=== PATIENT | female | born 1970 | race Caucasian/White ===

== ENCOUNTER 2018-04-20 00:31 | Outpatient (CLI) | payer BC, SELFPAY ==
--- NOTE | 2018-04-20 07:35 | MERGE_ITS ---
*[facility]* *[facility]* [address] [place] [address] Date of study: 04/20/2018 Transthoracic Echocardiography M-mode, complete 2D, complete spectral Doppler, and color Doppler *STUDY CONCLUSIONS* Summary: 1. Left ventricle: The cavity size was normal. Wall thickness was increased in a pattern of mild LVH. There was mild focal basal hypertrophy of the septum. Systolic function was normal. The estimated ejection fraction was 55-60%. Wall motion was normal; there were no regional wall motion abnormalities. 2. Aortic valve: There was mild regurgitation. 3. Mitral valve: There was mild regurgitation. 4. Right ventricle: The cavity size was normal. Wall thickness was normal. Systolic function was normal. *PATIENT PRESENTATION* Height: 170.2cm ((67in) ) S/D Pressure: 147 / 77 Weight: 77.1kg ((169.6lb) ) BSA: 1.92m^2 Test start time: 07:45 AM. Test stop time: 08:40 AM. PERFORMING Unknown ORDERING Aliyah Lopez MD REFERRING Aliyah Lopez MD PERFORMING [facility] TUFTER RT Karl (Ilsa)(BRAD), MALIHA *PROCEDURE DATA* Procedure information: The patient was identified by two identifiers. This study was interpreted by [facility]. Pertinent images and digital data are archived for permanent storage and are available for subsequent review. No prior study was available for comparison. Study status: Routine. Transthoracic echocardiography. M-mode, complete 2D, complete spectral Doppler, and color Doppler. A Transthoracic Echocardiogram was performed. Scanning was performed from the parasternal, apical, subcostal, and suprasternal notch acoustic windows. Images were obtained using an [id number] cardiac ultrasound machine. Image quality was fair. Study completion: The patient tolerated the procedure well. History: PMH: afib paroxysmal. *CARDIAC ANATOMY* Left ventricle: The cavity size was normal. Wall thickness was increased in a pattern of mild LVH. There was mild focal basal hypertrophy of the septum. There was a false tendon within the ventricle. Systolic function was normal. The estimated ejection fraction was 55-60%. Wall motion was normal; there were no regional wall motion abnormalities. Aortic valve: Trileaflet; mildly thickened, mildly calcified leaflets. Mobility was not restricted. Doppler: Transvalvular velocity was within the normal range. There was no stenosis. There was mild regurgitation. VTI ratio of LVOT to aortic valve: 0.73. Valve area (VTI): 2.2cm^2. Indexed valve area (VTI): 1.1cm^2/m^2. Peak velocity ratio of LVOT to aortic valve: 0.75. Valve area (Vmax): 2.3cm^2. Indexed valve area (Vmax): 1.2cm^2/m^2. Mean velocity ratio of LVOT to aortic valve: 0.64. Valve area (Vmean): 1.9cm^2. Indexed valve area (Vmean): 1cm^2/m^2. Mean gradient (S): 5.6mm Hg. Peak gradient (S): 10.9mm Hg. Aorta: Aortic root: The aortic root was normal in size. Ascending aorta: The ascending aorta was normal in size. Aortic arch: The aortic arch was normal in size. Mitral valve: Mildly thickened leaflets. Mobility was not restricted. Doppler: Transvalvular velocity was within the normal range. There was no evidence for stenosis. There was mild regurgitation. Valve area by pressure half-time: 3.9cm^2. Indexed valve area by pressure half-time: 2cm^2/m^2. Peak gradient (D): 4.3mm Hg. Left atrium: The atrium was at the upper limits of normal in size. Right ventricle: The cavity size was normal. Wall thickness was normal. Systolic function was normal. Pulmonic valve: Poorly visualized. Doppler: Transvalvular velocity was within the normal range. There was no evidence for stenosis. There was no significant regurgitation. Peak gradient (S): 3.9mm Hg. Tricuspid valve: Mildly thickened leaflets. Doppler: Transvalvular velocity was within the normal range. There was no evidence for stenosis. There was mild regurgitation. Pulmonary artery: Poorly visualized. Pulmonary systolic pressure was at the upper limits of normal. Right atrium: The atrium was normal in size. Pericardium: There was no pericardial effusion. Systemic veins: Inferior vena cava: Well visualized. The vessel was patent and normal in size. The respirophasic diameter changes were in the normal range (greater than or equal to 50%), consistent with normal central venous pressure. Baseline ECG: Normal sinus rhythm. Measurements Left ventricle Value Reference LV ID, ED, PLAX 4.3 cm 3.5 - 6.0 LV ID, ES, PLAX 3.0 cm 2.1 - 4.0 LV PW thickness, ED, PLAX 1.2 cm LV end-diastolic volume, 1-p A2C 97 ml LV ejection fraction, 1-p A2C 53 % LV end-diastolic volume, 1-p A4C 98 ml LV ejection fraction, 1-p A4C 53 % LV e', lateral 0.094 m/sec LV E/e', lateral 11 LV e', medial 0.069 m/sec LV E/e', medial 15 LV e', average 0.082 m/sec LV E/e', average 13 Ventricular septum Value Reference IVS thickness, ED, PLAX 1.3 cm LVOT Value Reference LVOT ID, A-P 2.0 cm LVOT area 3 cm^2 LVOT peak velocity, S 1.23 m/sec LVOT mean velocity, S 0.71 m/sec LVOT VTI, S 27.7 cm LVOT peak gradient, S 6.1 mm Hg LVOT mean gradient, S 2.6 mm Hg Stroke volume (SV), LVOT DP 84 ml Stroke index (SV/bsa), LVOT DP 43 ml/m^2 Aortic valve Value Reference Aortic valve peak velocity, S 1.7 m/sec Aortic valve mean velocity, S 1.11 m/sec Aortic valve VTI, S 38.1 cm Aortic mean gradient, S 5.6 mm Hg Aortic peak gradient, S 10.9 mm Hg VTI ratio, LVOT/AV 0.73 Aortic valve area, VTI 2.2 cm^2 Velocity ratio, peak, LVOT/AV 0.75 Aortic valve area, peak velocity 2.3 cm^2 Velocity ratio, mean, LVOT/AV 0.64 Aortic valve area, mean velocity 1.9 cm^2 Aortic valve area/bsa, mean velocity 1 cm^2/m^2 Aortic regurg deceleration 325 cm/s^2 Aortic regurg pressure half-time 434 ms Aorta Value Reference Aortic root ID, ED 3.0 cm Ascending aorta ID, A-P, S 3.3 cm Aortic arch ID, innominate-LCCA 2.3 cm 2.0 - 3.6 RVOT Value Reference RVOT VTI, S 20.8 cm Left atrium Value Reference LA ID, A-P, ES 3.6 cm LA ID/bsa, A-P 1.9 cm/m^2 <=2.2 LA area, ES, A4C 18.8 cm^2 8.8 - 23.4 LA area, ES, A2C 17 cm^2 LA volume/bsa, ES, 1-p A4C 32 ml/m^2 LA volume, ES, 2-p 49 ml LA volume/bsa, ES, 2-p 26 ml/m^2 LA/aortic root ratio 1.2 Mitral valve Value Reference Mitral E-wave peak velocity 1.04 m/sec Mitral A-wave peak velocity 0.74 m/sec Mitral deceleration time 195 ms 150 - 230 Mitral pressure half-time 57 ms Mitral peak gradient, D 4.3 mm Hg Mitral E/A ratio, peak 1.41 Mitral valve area, PHT, DP 3.9 cm^2 Pulmonary veins Value Reference Pulmonary vein peak velocity, S 0.49 m/sec Pulmonary vein peak velocity, D 0.42 m/sec Pulmonary vein velocity ratio, peak, 1.15 S/D Pulmonary vein A-wave reversal peak 0.3 m/sec velocity Pulmonary vein A-wave reversal 166 ms duration Pulmonary arteries Value Reference PA pressure, S, DP 29 mm Hg <=30 Tricuspid valve Value Reference Tricuspid regurg peak velocity 2.4 m/sec Tricuspid peak RV-RA gradient 23 mm Hg Right atrium Value Reference RA area, ES, A4C 14.2 cm^2 8.3 - 19.5 Systemic veins Value Reference Estimated CVP 10 mm Hg Right ventricle Value Reference RV pressure, S, DP (H) 33 mm Hg <=30 Pulmonic valve Value Reference Pulmonic peak gradient, S 3.9 mm Hg Legend: (L) and (H) luz values outside specified reference range. I have personally reviewed the images and have reviewed and edited the reported findings. Electronically signed by Tacos Strickland 04/20/2018 17:39
== END 2018-04-20 00:32 ==
PROVIDERS: PCP Family Medicine; Visit Provider Family Medicine
DX: I48.0 Paroxysmal atrial fibrillation (principal); I08.0 Rheumatic disorders of both mitral and aortic valves
CPT/HCPCS: 93306

== ENCOUNTER 2018-06-02 01:13 | Outpatient (CLI) | payer BC, SELFPAY | END 2018-06-02 01:33 | PROVIDERS: PCP Family Medicine; Visit Provider Family Medicine | DX: I48.0 Paroxysmal atrial fibrillation (principal); I47.1 Supraventricular tachycardia; R00.2 Palpitations | CPT/HCPCS: 93225 ==

== ENCOUNTER 2018-06-05 08:21 | Outpatient (CLI) | payer BC, SELFPAY ==
--- NOTE | 2018-06-05 16:39 | W.HOLTRPT ---
Holter Monitor Report Holter Monitor Note: Baseline rhythm is sinus. Rare single PAC. Single burst SVT, 6 beats duration at 127 bpm. Rare single PVC. No VT. No bradycardia. Symptoms: Palpitations on a once during sinus rhythm 76 bpm. Average heart rate 73 bpm. Range 60-121 bpm.
== END 2018-06-05 08:41 ==
PROVIDERS: PCP Family Medicine; Visit Provider Family Medicine
DX: I48.0 Paroxysmal atrial fibrillation (principal); I47.1 Supraventricular tachycardia; R00.2 Palpitations
CPT/HCPCS: 93226

== ENCOUNTER 2018-10-27 14:01 | Outpatient (REF) | payer BC, SELFPAY | END 2018-10-27 14:21 | LOC: LBN 14:01 | PROVIDERS: PCP Family Medicine; Visit Provider Family Medicine | DX: R35.0 Frequency of micturition (principal); R39.9 Unspecified symptoms and signs involving the genitourinary system | CPT/HCPCS: 87086 ==

== ENCOUNTER 2018-11-14 18:48 | Outpatient (REF) | payer BC, SELFPAY ==
[2018-11-14 18:55] LABS: Absolute Basophil Count 0.01 k/cumm (0.0-0.2); Absolute Lymphocyte Count 2.37 k/cumm (1.2-3.4); Absolute Monocyte Count 0.46 k/cumm (0.11-0.7); Basophils % 0.2; Eosinophils % 1.6; HCT 42.7 % (36.0-46.0); HGB 14.5 g/dL (12.0-15.5); Lymphocytes % 36.8; Mean Corpuscular Hemoglobin 30.6 pg (27.0-33.0); Mean Corpuscular Volume 90.1 fL (80-95); Mean Platelet Volume 10.6 fL (8.0-11.0); Monocytes % 7.1; Neutrophils % 54.3; Platelet Count 217 x1000/uL (130-400); RBC 4.74 m/cumm (4.00-5.20); RBC Distribution Width 12.8 % (11.7-14.6); White Blood Cell Count 6.44 k/cumm (4.4-10.8)
[2018-11-14 19:47] LABS: BUN 17 mg/dL (7-18); CREATININE 0.94 mg/dL (0.55-1.02); Calcium 9.6 mg/dL (8.5-10.1); Chloride 101 mmol/L (98-107); Glucose 132 mg/dL (70-100); Potassium 3.9 mmol/L (3.5-5.1); Sodium 139 mmol/L (136-145); TSH (W/Ref FT4) 2.77 uIU/mL (0.358-3.74)
== END 2018-11-14 19:08 ==
LOC: LBN 18:48
PROVIDERS: PCP Family Medicine; Visit Provider Family Medicine
DX: R00.0 Tachycardia, unspecified (principal)
CPT/HCPCS: 80048; 83735; 84443; 85025

== ENCOUNTER 2018-11-28 10:14 | Emergency (ER) | payer BC, SELFPAY ==
[2018-11-28 10:17] VITALS: BP 170/98; PULSE 90; RESP 18; TEMP 36.1; O2SAT 100
[2018-11-28] MEDS: Normal Saline Flush 10 ML SYR IVP (11:00)
[2018-11-28] MEDS: Prochlorperazine 10 MG/2 ML VIAL IVP (11:10)
[2018-11-28] MEDS: Ketorolac 30 MG/ML VIAL IVP (11:15)
[2018-11-28] MEDS: Dexamethasone 10 MG/ML VIAL IVP (11:21)
[2018-11-28] MEDS: diphenhydrAMINE 50 MG/ML VIAL 25 MG IVP (11:23)
--- NOTE | 2018-11-28 11:29 | NUR.NOTE ---
Resting quieter after admin of ordered migraine meds, less restless. Headache now 5, nausea 3. Nursing Note:
--- NOTE | 2018-11-28 12:08 | W.ED.GENAD ---
Discharge Plan Disposition Patient Disposition: HOME Condition: Improving Discharge Details Chief Complaint: Headache Clinical Impression: Migraine Primary Care Provider: John Sandhu ED Provider: Leanne Huddleston Home Meds and New Rx's Prescriptions: Continued spironolactone 50 mg tablet 50 mg PO DAILY RF: 0 rizatriptan [Maxalt] 10 MG tablet 10 mg PO ONCE RF: 0 sumatriptan succinate [Imitrex STATdose Pen] 6 MG/0.5 ML pen injector 6 mg SQ ONCE PRNRF: 0 valacyclovir [Valtrex] 500 MG tablet 1,000 mg PO BID RF: 0 acetaminophen 500 MG/5 ML liquid 1,000 mg PO QID RF: 0 ibuprofen 800 mg Tablet 800 mg PO PRNRF: 0 Discharge Instructions Instructions: Migraine Headache (ED) Additional Instructions: Drink plenty of fluids and get plenty of rest. Take the Compazine as needed and directed for any nausea or vomiting. Take your migraine medication that you have at home as needed and directed for any migraines. Follow-up with your neurologist and primary care doctor for reevaluation. Return immediately to the emergency department with any worsening or concerning symptoms. Discharge Data Discharge Physician: Leanne Huddleston Medical Decision Making 1030 -- 48-year-old female with history of anxiety, panic attacks and migraine who presents with migraine since 5 AM. Denies fever, neck pain. She admits to phonophobia and photophobia. Blood pressure mildly hypertensive. Vitals within normal limits. Patient appears uncomfortable. Normal ENT exam. No focal deficits. Will place an IV, bolus IV fluids, Compazine, Benadryl, Toradol and Decadron and will reassess. As her symptoms feel consistent with her usual migraine and she has no focal deficits, no meningeal signs, I do not see an indication for labs or imaging at this time. 1220 --patient feels much better and is requesting to go home. Patient appears much more comfortable. She is ambulatory around the ED. She states she has a neurologist. She states she has plenty of her migraine medication at home. Will send home with 2 tabs of Compazine. She is instructed to drink plenty of fluids and get plenty of rest, follow up with her neurologist and primary care doctor return here at any time if worse. HPI General Mode of arrival: ambulatory. Date/Time Provider Initiated Documentation: 11/28/18 10:34. Limitations to Documentation: no limitations. Information obtained by: patient. HPI Narrative: Patient is a 48-year-old female with a history of anxiety, panic attacks, and migraines who presents for migraines since 5 and this morning. She states the headache started gradually after she awoke, is frontal, and on the left roman catholic side of her head. She states the headache is throbbing in nature. She states it feels consistent with previous migraines. She admits to photophobia, phonophobia, nausea and vomiting. She took 2 doses of Maxalt but vomited after each tab. She denies any fever. She denies any recent illness. She states she drank wine and ate chili last night. She denies any extremity weakness or numbness. Related Data Home Medications Medication Instructions Recorded Confirmed acetaminophen 1,000 mg PO QID ml 11/30/16 11/28/18 rizatriptan [Maxalt] 10 mg PO ONCE tab-cap 11/30/16 11/28/18 sumatriptan succinate [Imitrex 6 mg SQ ONCE PRN ml 11/30/16 11/28/18 STATdose Pen] valacyclovir [Valtrex] 1,000 mg PO BID tab-cap 11/30/16 11/28/18 spironolactone 50 mg tablet 50 mg PO DAILY 09/07/18 11/28/18 ibuprofen 800 mg PO PRN 11/28/18 Allergies Allergy/AdvReac Type Severity Reaction Status Date / Time Sulfa (Sulfonamide Allergy Severe THROAT Verified 11/28/18 10:34 Antibiotics) CLOSES OFF General Stated Complaint: Headache CRISTOPHER: 3 Review of Systems Review of Systems All systems reviewed & are unremarkable except as noted in HPI and below Constitutional Reports as per HPI, Denies chills, Denies fever(s) and Reports headache(s) Eyes Denies blurry vision ENT Denies dizziness, Reports headache(s), Denies sore throat and Denies throat swelling Cardiovascular Denies chest pain and Denies dyspnea Respiratory Denies cough and Denies dyspnea Gastrointestinal Denies abdominal pain, Denies diarrhea, Reports nausea and Reports vomiting Genitourinary Denies hematuria and Denies dysuria Musculoskeletal Denies back pain and Denies numbness Integumentary/Breasts Denies lesions and Denies rash Neurologic Denies dizziness, Reports headache(s), Denies focal weakness and Denies numbness Allergic/Immunologic Denies throat swelling [facility] Medical History Anxiety (Chronic) Panic disorder (Chronic) Dysuria (Chronic) Sciatica (Chronic) Chronic constipation (Chronic) Essential hypertension (Chronic) Migraine without aura (Chronic) Breast calcifications on mammogram (Acute) Cervico-occipital neuralgia (Acute) Cyst of ovary (Acute) Cystitis (Acute) Depersonalization-derealization syndrome (Acute) Disorder of shoulder (Acute) Flushing (Acute) Onychomycosis (Acute) S/P tubal ligation (Acute ~09/05/93) Kidney stone (Chronic) Paroxysmal atrial fibrillation (Resolved) Surgical History S/P arthroscopy of left shoulder (Acute ~2012) S/P arthroscopy of shoulder (Acute) S/P hysterectomy (Acute ~05/21/09) H/O bladder repair surgery (Chronic ~10/20/15) Family History Father Aneurysm Heart disease Mother No problems noted. 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 has ovaries. last period in 2010.) History History 2 Para 2 Hx # Term Pregnancies Multiple births Hx # Pregnancies Ectopic pregnancies AB induced Hx Number of Living Children AB spontaneous Exam Const General: cooperative, healthy appearing and no acute distress HENMT Head: normal to inspection Ears: hearing grossly normal bilaterally and TM's normal bilaterally General nose exam: external nose normal Face and sinus: normal facial exam Mouth: oral mucosae normal Teeth and gingiva: dentition normal Throat: posterior oropharynx normal Eyes General: appearance normal, both eyes and all related structures Pupils: PERRL EOM: EOM intact bilaterally Neck Neck: normal visual inspection and No submandibular swelling Lymphatic: no lymphadenopathy noted Chest Chest: normal inspection of the chest and no tenderness Resp Effort & Inspection: normal respiratory effort and able to speak in complete sentences Auscultation: clear to auscultation bilaterally Cardio Rate: regular rate Rhythm: regular rhythm GI Inspection: normal to inspection Palpation: soft, not firm, not rigid and nontender Auscultation: normal bowel sounds Skin General skin exam: no rashes or lesions noted Neuro General: alert, awake and oriented x3 Cranial Nerves: CN's II-XI intact bilaterally Cognition: normal cognition Speech: speech normal Motor: muscle tone normal throughout and strength 5/5 throughout Sensory Exam: no sensory deficits noted Extrem General: normal to inspection, full ROM, normal capillary refill and no edema Psych Appearance: grossly normal Mental Status: mental status grossly normal Speech and Movement: speech and movement normal Affect: normal affect Course Vital Signs Temperature 97.0 F L 11/28/18 10:17 Pulse 90 11/28/18 10:17 Respiratory Rate 18 11/28/18 10:17 Blood Pressure 170/98 H 11/28/18 10:17 Pulse Oximetry 100 11/28/18 10:17 Temperature 97.0 F L 11/28/18 10:17 Temperature Source Temporal Artery Scan 11/28/18 10:17 Pulse 90 11/28/18 10:17 Respiratory Rate 18 11/28/18 10:17 Respiratory Effort Non-Labored 11/28/18 10:19 Blood Pressure 170/98 H 11/28/18 10:17 Blood Pressure Position Sitting 11/28/18 10:17 Pulse Oximetry 100 11/28/18 10:17 Oxygen Delivery Method Room Air 11/28/18 10:17 Oxygen Flow Rate 0 11/28/18 10:17 Pain Level 10 11/28/18 11:23
--- NOTE | 2018-11-28 12:12 | ED.GENADUL_ITS ---
Discharge Plan Disposition Patient Disposition: HOME Condition: Improving Discharge Details Chief Complaint: Headache Clinical Impression: Migraine Primary Care Provider: John Sandhu ED Provider: Leanne Huddleston Home Meds and New Rx's Prescriptions: Continued spironolactone 50 mg tablet 50 mg PO DAILY RF: 0 rizatriptan [Maxalt] 10 MG tablet 10 mg PO ONCE RF: 0 sumatriptan succinate [Imitrex STATdose Pen] 6 MG/0.5 ML pen injector 6 mg SQ ONCE PRNRF: 0 valacyclovir [Valtrex] 500 MG tablet 1,000 mg PO BID RF: 0 acetaminophen 500 MG/5 ML liquid 1,000 mg PO QID RF: 0 ibuprofen 800 mg Tablet 800 mg PO PRNRF: 0 Discharge Instructions Instructions: Migraine Headache (ED) Additional Instructions: Drink plenty of fluids and get plenty of rest. Take the Compazine as needed and directed for any nausea or vomiting. Take your migraine medication that you have at home as needed and directed for any migraines. Follow-up with your neurologist and primary care doctor for reevaluation. Return immediately to the emergency department with any worsening or concerning symptoms. Discharge Data Discharge Physician: Leanne Huddleston Medical Decision Making 1030 -- 48-year-old female with history of anxiety, panic attacks and migraine who presents with migraine since 5 AM. Denies fever, neck pain. She admits to phonophobia and photophobia. Blood pressure mildly hypertensive. Vitals within normal limits. Patient appears uncomfortable. Normal ENT exam. No focal deficits. Will place an IV, bolus IV fluids, Compazine, Benadryl, Toradol and Decadron and will reassess. As her symptoms feel consistent with her usual migraine and she has no focal deficits, no meningeal signs, I do not see an indication for labs or imaging at this time. 1220 --patient feels much better and is requesting to go home. Patient appears much more comfortable. She is ambulatory around the ED. She states she has a neurologist. She states she has plenty of her migraine medication at home. Will send home with 2 tabs of Compazine. She is instructed to drink plenty of fluids and get plenty of rest, follow up with her neurologist and primary care doctor return here at any time if worse. HPI General Mode of arrival: ambulatory . Date/Time Provider Initiated Documentation: 11/28/18 10:34 . Limitations to Documentation: no limitations . Information obtained by: patient . HPI Narrative: Patient is a 48-year-old female with a history of anxiety, panic attacks, and migraines who presents for migraines since 5 and this morning. She states the headache started gradually after she awoke, is frontal, and on the left bahai side of her head. She states the headache is throbbing in nature. She states it feels consistent with previous migraines. She admits to photophobia, phonophobia, nausea and vomiting. She took 2 doses of Maxalt but vomited after each tab. She denies any fever. She denies any recent illness. She states she drank wine and ate chili last night. She denies any extremity weakness or numbness. Related Data Home Medications Medication Instructions Recorded Confirmed acetaminophen 1,000 mg PO QID ml 11/30/16 11/28/18 rizatriptan [Maxalt] 10 mg PO ONCE tab-cap 11/30/16 11/28/18 sumatriptan succinate [Imitrex 6 mg SQ ONCE PRN ml 11/30/16 11/28/18 STATdose Pen] valacyclovir [Valtrex] 1,000 mg PO BID tab-cap 11/30/16 11/28/18 spironolactone 50 mg tablet 50 mg PO DAILY 09/07/18 11/28/18 ibuprofen 800 mg PO PRN 11/28/18 Allergies Allergy/AdvReac Type Severity Reaction Status Date / Time Sulfa (Sulfonamide Allergy Severe THROAT Verified 11/28/18 10:34 Antibiotics) CLOSES OFF General Stated Complaint: Headache CRISTOPHER: 3 Review of Systems Review of Systems All systems reviewed & are unremarkable except as noted in HPI and below Constitutional Reports as per HPI, Denies chills, Denies fever(s) and Reports headache(s) Eyes Denies blurry vision ENT Denies dizziness, Reports headache(s), Denies sore throat and Denies throat swelling Cardiovascular Denies chest pain and Denies dyspnea Respiratory Denies cough and Denies dyspnea Gastrointestinal Denies abdominal pain, Denies diarrhea, Reports nausea and Reports vomiting Genitourinary Denies hematuria and Denies dysuria Musculoskeletal Denies back pain and Denies numbness Integumentary/Breasts Denies lesions and Denies rash Neurologic Denies dizziness, Reports headache(s), Denies focal weakness and Denies numbness Allergic/Immunologic Denies throat swelling [facility] Medical History Anxiety (Chronic) Panic disorder (Chronic) Dysuria (Chronic) Sciatica (Chronic) Chronic constipation (Chronic) Essential hypertension (Chronic) Migraine without aura (Chronic) Breast calcifications on mammogram (Acute) Cervico-occipital neuralgia (Acute) Cyst of ovary (Acute) Cystitis (Acute) Depersonalization-derealization syndrome (Acute) Disorder of shoulder (Acute) Flushing (Acute) Onychomycosis (Acute) S/P tubal ligation (Acute ~09/05/93) Kidney stone (Chronic) Paroxysmal atrial fibrillation (Resolved) Surgical History S/P arthroscopy of left shoulder (Acute ~2012) S/P arthroscopy of shoulder (Acute) S/P hysterectomy (Acute ~05/21/09) H/O bladder repair surgery (Chronic ~10/20/15) Family History Father Aneurysm Heart disease Mother No problems noted. 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 has ovaries. last period in 2010.) History History 2 Para 2 Hx # Term Pregnancies Multiple births Hx # Pregnancies Ectopic pregnancies AB induced Hx Number of Living Children AB spontaneous Exam Const General: cooperative, healthy appearing and no acute distress HENMT Head: normal to inspection Ears: hearing grossly normal bilaterally and TM's normal bilaterally General nose exam: external nose normal Face and sinus: normal facial exam Mouth: oral mucosae normal Teeth and gingiva: dentition normal Throat: posterior oropharynx normal Eyes General: appearance normal, both eyes and all related structures Pupils: PERRL EOM: EOM intact bilaterally Neck Neck: normal visual inspection and No submandibular swelling Lymphatic: no lymphadenopathy noted Chest Chest: normal inspection of the chest and no tenderness Resp Effort & Inspection: normal respiratory effort and able to speak in complete sentences Auscultation: clear to auscultation bilaterally Cardio Rate: regular rate Rhythm: regular rhythm GI Inspection: normal to inspection Palpation: soft, not firm, not rigid and nontender Auscultation: normal bowel sounds Skin General skin exam: no rashes or lesions noted Neuro General: alert, awake and oriented x3 Cranial Nerves: CN's II-XI intact bilaterally Cognition: normal cognition Speech: speech normal Motor: muscle tone normal throughout and strength 5/5 throughout Sensory Exam: no sensory deficits noted Extrem General: normal to inspection, full ROM, normal capillary refill and no edema Psych Appearance: grossly normal Mental Status: mental status grossly normal Speech and Movement: speech and movement normal Affect: normal affect Course Vital Signs Temperature 97.0 F L 11/28/18 10:17 Pulse 90 11/28/18 10:17 Respiratory Rate 18 11/28/18 10:17 Blood Pressure 170/98 H 11/28/18 10:17 Pulse Oximetry 100 11/28/18 10:17 Temperature 97.0 F L 11/28/18 10:17 Temperature Source Temporal Artery Scan 11/28/18 10:17 Pulse 90 11/28/18 10:17 Respiratory Rate 18 11/28/18 10:17 Respiratory Effort Non-Labored 11/28/18 10:19 Blood Pressure 170/98 H 11/28/18 10:17 Blood Pressure Position Sitting 11/28/18 10:17 Pulse Oximetry 100 11/28/18 10:17 Oxygen Delivery Method Room Air 11/28/18 10:17 Oxygen Flow Rate 0 11/28/18 10:17 Pain Level 10 11/28/18 11:23
[2018-11-28 12:19] VITALS: BP 161/86; PULSE 84; RESP 15; TEMP 36.6; O2SAT 98
[2018-11-28 13:15] VITALS: BP 170/98; PULSE 90; RESP 15; TEMP 36.6; O2SAT 98
== END 2018-11-28 12:50 | disposition home or self-care (01) ==
PROVIDERS: Emergency Provider Physician Assistant; PCP Family Medicine
DX: G43.909 Migraine, unspecified, not intractable, without status migrainosus (principal); F41.9 Anxiety disorder, unspecified
CPT/HCPCS: 96374; 96375; 99284; J0780; J1100; J1200; J1885

== ENCOUNTER 2018-12-18 11:42 | Outpatient (CLI) | payer BC, SELFPAY ==
--- NOTE | 2018-12-18 10:05 | DI.RAD_ITS ---
SYMPTOM/DIAGNOSIS: CHRONIC NECK PAIN WITH REDUCED ROM, M54.2 CERVICAL SPINE: 12/18/18 Six views were obtained. There is fairly good preservation of the intervertebral disc spaces of the cervical spine. Prominent hypertrophic spurring of the vertebral end plates is noted at C5-6 and C6-7. Mild to moderate facet hypertrophic degenerative changes are noted at multiple levels. Neural foramina are not ideally evaluated on the oblique views and I could not exclude neural foraminal encroachment. No evidence of fracture. CONCLUSION: Moderate to severe degenerative changes of the cervical spine as described above. If there is high clinical suspicion of neural impingement additional evaluation with MRI could be considered.
== END 2018-12-18 12:02 ==
PROVIDERS: PCP Family Medicine; Visit Provider Family Medicine
DX: M54.2 Cervicalgia (principal); M53.83 Other specified dorsopathies, cervicothoracic region; M47.812 Spondylosis without myelopathy or radiculopathy, cervical region
CPT/HCPCS: 72050

== ENCOUNTER 2019-01-17 02:13 | Outpatient (CLI) | payer BC, SELFPAY | END 2019-01-17 02:33 | PROVIDERS: PCP Family Medicine; Visit Provider Family Medicine | DX: R00.0 Tachycardia, unspecified (principal); I49.1 Atrial premature depolarization | CPT/HCPCS: 93225 ==

== ENCOUNTER 2019-01-22 11:59 | Outpatient (CLI) | payer BC, SELFPAY ==
--- NOTE | 2019-01-23 10:29 | HOLTER_ITS ---
DATE OF DICTATION: January 22, 2019 48-HOUR STUDY Baseline rhythm sinus. Occasional single PAC. No SVT or atrial fibrillation.
== END 2019-01-22 12:19 ==
PROVIDERS: PCP Family Medicine; Visit Provider Family Medicine
DX: R00.0 Tachycardia, unspecified (principal); I49.1 Atrial premature depolarization
CPT/HCPCS: 93226

== ENCOUNTER 2019-06-11 13:13 | Outpatient (REF) | payer BC, SELFPAY ==
--- NOTE | 2019-06-11 11:30 | PAPFT_PTH ---
PATIENT: Christelle Nunez LOC: [facility] U#:[id number] AGE/SX: 48/F ROOM: RE06/11/[address]: SEGUNDO Newell : 1970 BED: DIS: 06/11/2019 SPEC #: [id number] RECD: 06/11/19 17:49 STATUS: ALEXANDRU REQ #: [id number] GAYATRI: 06/11/19 11:[address]: Olivia Lindquist DEPT: [facility] Cytology RECD BY: Shea Travis ENTERED: 06/11/19 17:49 SP TYPE: PAPFT OTHR DR: John Sandhu DO Tissues: 1 - CX/ENDOCX FOR PAP SMEARS Procedures: PAP THIN PREP/UVM Screening Comments: [id number]
== END 2019-06-11 13:33 ==
LOC: LBN 13:13
PROVIDERS: PCP Family Medicine; Visit Provider Nurse Practitioner Family
DX: Z12.4 Encounter for screening for malignant neoplasm of cervix (principal)
CPT/HCPCS: 88142

== ENCOUNTER 2019-07-06 06:11 | Day surgery (SDC) | payer BC, SELFPAY ==
[2019-07-06 06:25] VITALS: BP 151/96; PULSE 84; RESP 18; TEMP 36.5; O2SAT 97
[2019-07-06] MEDS: Lactated Ringers 1,000 ML 80 ML IV (06:45)
[2019-07-06] MEDS: ceFAZolin 1 GM/50 ML BAG IVPB (07:35)
[2019-07-06] MEDS: Lidocaine 1% Pres-Free 5 ML VIAL (07:40)
[2019-07-06] MEDS: Bupivacaine 0.5% Pres-Free 30 ML VIAL (07:40)
[2019-07-06] MEDS: Dexamethasone 4 MG/ML VIAL (08:11)
--- NOTE | 2019-07-06 08:31 | W.PM.DSUDISC ---
Discharge Plan Disposition Patient Disposition: HOME Condition: Good Discharge Details Reason For Visit: correction painful right bunion Attending Provider: Meño Robert Primary Care Provider: John Sandhu Home Meds and New Rx's Prescriptions: No Action topiramate [Topamax] 50 mg tablet See Rx Instructions PO BID Qty: 90 RF: 2 sumatriptan succinate [Imitrex STATdose Pen] 6 mg/0.5 mL pen injector 6 mg subcut ONCE PRN (Reason: migraine headache) Qty: 1 RF: 6 rizatriptan [Maxalt] 10 mg tablet 10 mg PO ONCE Qty: 15 RF: 3 spironolactone 50 mg tablet 50 mg PO DAILY Qty: 90 RF: 3 ibuprofen 800 mg tablet 800 mg PO TID PRN (Reason: neck pain) Qty: 90 RF: 1 prochlorperazine maleate 5 mg tablet 5 mg PO Q8H PRN (Reason: nausea with refractory migraine) Qty: 10 RF: 6 valacyclovir [Valtrex] 500 mg tablet 1,000 mg PO BID PRNRF: 0 Discharge Instructions Remove Dressings/Wound Care:: Do Not Remove Shower/Bathe:: Cover Diet:: As Tolerated Discharge Orders Discharge Orders: Discharge Order (Routine); Ordered 07/06/19 Ordered By: Meño Robert DS: Diagnosis Discharge Diagnosis (1) Hallux rigidus of right foot: Status: Acute
[2019-07-06 09:05] VITALS: BP 139/87; PULSE 73; RESP 16; TEMP 36.6; O2SAT 99
[2019-07-06] MEDS: Ibuprofen 600 MG TAB PO (09:13)
--- NOTE | 2019-07-06 09:48 | ROE_ITS ---
DATE OF PROCEDURE: July 06, 2019 PREOPERATIVE DIAGNOSIS: Hallux rigidus deformity right foot with chronic pain. POSTOPERATIVE DIAGNOSIS: Same. PROCEDURE: Cheilectomy; bunionectomy right first MPJ. SURGEON: Meño Robert D.P.M. 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 She is being brought to the OR for surgical interven tion to reduce pain and improve function. Risks and complications have been discussed, including the potential for pain, scarring, infection, stiffness of the joint. She understands that revisional p rocedures may be required in the future. All questions have been answered. No promises made to the final outcome of surgery. REPORT OF OPERATION: Christelle was brought to the operative suite, placed in the supine position where the right foot was prepped and draped in the usual sterile podiatric fashion. Anesthesia being obtai taz utilizing 10 cc's of a 50:50 mixture of 1% Lidocaine plain, 0.5% Marcaine plain. The right foot was exsanguinated and a well-padded ankle tourniquet inflated 250 mmHg. Attention was directed to the right first MPJ where a 5 cm incision was made medial to the EHL tendon . The incision was deepened in controlled depth fashion; hemostasis acquired with electrocautery. D issection was carried down to the joint capsule. The joint capsule was incised midline dorsal. The capsule was reflected medially and laterally and extensive degenerative arthritic changes were apprec iated. Full-thickness erosion was noted, affecting the dorsal third of the first metatarsal head. P artial-thickness erosions were seen on the base of the proximal phalanx at its dorsal component, wher e large exostoses were also seen. With power instrumentation the medial, lateral and dorsal exostosi s from the first metatarsal head was resected. With a rongeur the dorsal aspect of the base of the p roximal phalanx was cleaned up. At this time it appears that she has reasonably good cartilage affec ting the lower portion of the first metatarsal head and base of the proximal phalanx, and I believe w ith a modified Avery procedure she would have adequate range of motion and marked relief of pain wi th this procedure. Based on her age I would prefer not to do a joint resection arthroplasty at this time and we have discussed this preoperatively. The wound was copiously irrigated with normal saline . The joint capsule was hypertrophic and was debrided of some synovitis. The capsule was subsequent ly repaired with simple interrupted suture #3-0 Vicryl. The subcutaneous layer was repaired with sim ple interrupted suture #4-0 Vicryl. A running subcuticular stitch of #4-0 Monocryl was used to bring the skin edges together, followed by Mastisol, half-inch Steri-Strips. Four milligrams of dexametha sone phosphate was infused deeply into the wound. Xeroform, gauze fluff compression dressings were a pplied. Ms. Nunez left the OR with vital signs stable, vascular status intact. Sponge and sharp co unts were correct. She will be followed by me in the office next week. cc: John Sandhu D.O.
== END 2019-07-06 09:40 | disposition home or self-care (01) ==
PROVIDERS: PCP Family Medicine; Visit Provider Podiatrist
PROC: (CPT 28289; principal; 2019-07-06 07:30)
DX: M20.21 Hallux rigidus, right foot (principal); M21.611 Bunion of right foot; G89.29 Other chronic pain; M19.071 Primary osteoarthritis, right ankle and foot; I10 Essential (primary) hypertension
CPT/HCPCS: 28289; J0690; J1100; J1885; J2405

== ENCOUNTER 2019-07-25 10:56 | Outpatient (CLI) | payer BC, SELFPAY ==
[2019-07-25 12:13] LABS: PTT Activated 23.4 sec (21.0-31.4); Prothrombin Time 10.2 sec (9.3-11.0)
[2019-07-25 12:38] LABS: HCT 41.2 % (36.0-46.0); HGB 14.4 g/dL (12.0-15.5); Mean Corpuscular Hemoglobin 30.9 pg (27.0-33.0); Mean Corpuscular Volume 88.4 fL (80-95); Mean Platelet Volume 9.9 fL (8.0-11.0); Platelet Count 226 x1000/uL (130-400); RBC 4.66 m/cumm (4.00-5.20); RBC Distribution Width 12.5 % (11.7-14.6); White Blood Cell Count 6.32 k/cumm (4.4-10.8)
== END 2019-07-25 11:16 ==
PROVIDERS: PCP Family Medicine; Visit Provider Colon & Rectal Surgery
DX: D66 Hereditary factor VIII deficiency (principal); Z98.890 Other specified postprocedural states; Z01.818 Encounter for other preprocedural examination
CPT/HCPCS: 36415; 85027; 85610; 85730

== ENCOUNTER 2019-08-24 02:14 | Outpatient (CLI) | payer BC, SELFPAY ==
--- NOTE | 2019-08-24 13:09 | DI.MAMMO_ITS ---
EXAM: MG MAMMO SCREENING CLINICAL HISTORY: screening TECHNIQUE: Bilateral full field digital CC and MLO mammographic images were obtained with 3D tomosyn thesis and utilizing computer aided detection (CAD). COMPARISON: Available for comparison. FINDINGS: Masses/Architectural Distortion: None seen. Microcalcifications: No suspicious pleomorphic-type are seen. Skin Thickening/Nipple Retraction: None. IMPRESSION: 1. No significant interval change with no specific features of malignancy noted. 2. Unless there is more urgent need, screening mammography is recommended, as per [employer] guidelines. ACR BI-RAD Category- 1 Negative Breast Density - Category C - Heterogeneously dense The mammogram demonstrates the patient's breast tissue is dense. Dense breast tissue is very common a nd is not abnormal but dense breast tissue can make it harder to find cancer on a mammogram. Also, de nse breast tissue may increase their breast cancer risk. This information about the result of the [facility] mogram report was provided to the patient to raise their awareness. Use this report when you speak wi th the patient about their risks for breast cancer, which includes their family history. At that time , you may recommend for more screening tests (Ultrasound or MRI) as they might be useful based on the ir risk. A negative radiographic report should not delay biopsy if a dominant or clinically suspicious mass is present. Up to ten percent of cancers are not identified on mammography. A negative report may reinforce clinical impression. Adenosis and dense breasts may obscure an underlying neoplasm. False positive reports average 6 to 10%. Patient will receive a letter notifying them of these results.
== END 2019-08-24 02:34 ==
PROVIDERS: PCP Family Medicine; Visit Provider Nurse Practitioner Family
DX: Z12.31 Encounter for screening mammogram for malignant neoplasm of breast (principal)
CPT/HCPCS: 77063; 77067

== ENCOUNTER 2020-02-12 18:52 | Emergency (ER) | payer BC, SELFPAY ==
[2020-02-12 18:58] VITALS: BP 212/101; PULSE 88; RESP 17; TEMP 36.6; O2SAT 100
--- NOTE | 2020-02-12 19:07 | ED.GENADUL_ITS ---
Discharge Plan Disposition Patient Disposition: HOME Condition: Improving Discharge Details Chief Complaint: Allergic Clinical Impression: Lip edema Primary Care Provider: John Sandhu ED Provider: Carlos Domingo Home Meds and New Rx's Prescriptions: New prednisone 20 mg tablet 40 mg PO DAILY 3 Days Qty: 6 RF: 0 Continued sumatriptan succinate [Imitrex STATdose Pen] 6 mg/0.5 mL pen injector 6 mg subcut ONCE PRN (Reason: migraine headache) Qty: 1 RF: 6 rizatriptan [Maxalt] 10 mg tablet 10 mg PO ONCE Qty: 15 RF: 3 valacyclovir [Valtrex] 500 mg tablet 1,000 mg PO BID PRNRF: 0 Discharge Instructions Additional Instructions: Please take prednisone as prescribed for 3 days time. Maintain high level of surveillance for potential food allergies such as with the potato chips you ate earlier in the day. Please have your blood pressure rechecked once per day or every other day at the same time. Please record the levels and discussed them with Dr Sandhu at your next appointment. Return if you develop worsening swelling, shortness of breath, rash, difficulty swallowing, or any other acute concerns. Medical Decision Making <Da Alvarado MD - Last Filed: 02/12/20 19:42> Pleasant 49-year-old female presents with abrupt onset of left lower lip swelling while eating flavored potato chips that she had not had before. She took cetirizine and drove herself to the hospital, admitting she was anxious throughout her drive. She is not had difficulty with swallowing, no change to voice, no difficulty breathing and no rash. She arrives mildly anxious and hypertensive but in no significant distress. She does have angioedema of the left lower lip. IV placed, patient given 25 mg Benadryl, Solu-Medrol, famotidine. She has some gradual improvement of the left lower lip swelling. I will place her on an additional 3 days of low-dose prednisone to prevent recrudescence of symptoms. She understands to avoid the potential food allergen that she was exposed to this evening. She will have her blood pressure rechecked in the outpatient setting. <Carlos Domingo MD - Last Filed: 02/12/20 20:13> pt feels better and states lip feels smaller, has mild swelling of lower lip, no uvula swelling, dyspnea, tongue swelling, or gi symptoms. Will d/c on prednisone and advised to f/u with pcp for repeat BP and also possible [employer] referral HPI <Da Alvarado MD - Last Filed: 02/12/20 19:42> General Mode of arrival: ambulatory . Date/Time Provider Initiated Documentation: 02/12/20 18:53 . Limitations to Documentation: no limitations . Information obtained by: patient . History of Present Illness 49 year old F presents to the emergency department with the chief complaint of 49-year-old female with left side lower lip swelling, described as moderate, Quality is described as dull and constant, and is localized to the mouth and left. Patient reports no radiation. Patient started experiencing this hour(s) and it has been constant. No relieving factors improve symptom(s), No exacerbating factors reported . Patient notes denies cough, nausea/vomiting, rash and shortness of breath. Patient did receive the following treatments prior to arrival, other (Cetirizine) Related Data Home Medications Medication Instructions Recorded Confirmed rizatriptan 10 mg tablet 10 mg PO ONCE #15 tab-cap 06/29/19 02/12/20 sumatriptan succinate 6 mg/0.5 mL 6 mg SUBCUT ONCE PRN #1 ml 06/29/19 02/12/20 subcutaneous pen injector valacyclovir [Valtrex] 1,000 mg PO BID PRN 07/04/19 02/12/20 prednisone 40 mg PO DAILY 3 Days #6 tab 02/12/20 Previous Rx's Medication Instructions Recorded rizatriptan 10 mg tablet 10 mg PO ONCE #15 tab-cap 06/29/19 sumatriptan succinate 6 mg/0.5 mL 6 mg SUBCUT ONCE PRN #1 ml 06/29/19 subcutaneous pen injector prednisone 40 mg PO DAILY 3 Days #6 tab 02/12/20 Allergies Allergy/AdvReac Type Severity Reaction Status Date / Time Sulfa (Sulfonamide Allergy Severe THROAT Verified 02/12/20 19:00 Antibiotics) CLOSES OFF General Stated Complaint: Allergic CRISTOPHER: 3 Review of Systems <Da Alvarado MD - Last Filed: 02/12/20 19:42> Narrative: No difficulty breathing, no wheeze, no difficulty swallowing or change to voice. 4 systems reviewed and otherwise negative PFSH <Da Alvarado MD - Last Filed: 02/12/20 19:42> Medical History Anxiety (Chronic) Breast calcifications on mammogram (Acute) Cervico-occipital neuralgia (Acute) Chronic constipation (Chronic) Cyst of ovary (Acute) Cystitis (Acute) Depersonalization-derealization syndrome (Acute) Disorder of shoulder (Acute) Dysuria (Chronic) Essential hypertension (Chronic) Flushing (Acute) Kidney stone (Chronic) Migraine without aura (Chronic) Onychomycosis (Acute) Panic disorder (Chronic) Paroxysmal atrial fibrillation (Resolved) Sciatica (Chronic) Screening for colon cancer (Acute) Family History Father Aneurysm Heart disease Mother No problems noted. 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 Pleasant, well groomed, interactive. HEAD: Normocephalic, atraumatic ENT: Mucous membranes moist, oropharynx unremarkable, uvula midline, left lower lip edematous, external ear exam unremarkable EYES: PERRL, EOMI NECK: Full ROM, no GALINDO, no menigismus CHEST/RESP: Nontender, clear to auscultation bilateral, no wheeze/rhonchi/rales CARDIOVASCULAR: RRR, no murmur, rub chayito. 2+ Rad pulse bilateral EXT: Full ROM, no edema, no rash Neuro: Grossly normal neurologic exam, conversant, interactive. Psych: Speech fluent, thoughts congruent, affect slightly anxious Course <Da Alvarado MD - Last Filed: 02/12/20 19:42> Vital Signs Vital signs: Vital Signs Temperature 36.6 C 02/12/20 18:58 Pulse 88 02/12/20 18:58 Respiratory Rate 17 02/12/20 18:58 Blood Pressure 212/101 H 02/12/20 18:58 Pulse Oximetry 100 02/12/20 18:58 Temperature 36.6 C 02/12/20 18:58 Temperature Source Temporal Artery Scan 02/12/20 18:58 Pulse 88 02/12/20 18:58 Respiratory Rate 17 02/12/20 18:58 Respiratory Effort 02/12/20 19:02 Respiratory Pattern Normal 02/12/20 19:02 Blood Pressure 212/101 H 02/12/20 18:58 Blood Pressure Position Supine 02/12/20 18:58 Pulse Oximetry 100 02/12/20 18:58 Oxygen Delivery Method Room Air 02/12/20 18:58 Oxygen Flow Rate 0 02/12/20 18:58 Pain Level 0 02/12/20 18:58 Sign Out <Da Alvarado MD - Last Filed: 02/12/20 19:42> Sign Out Data: Sign Out Comment: re check angioedem after meds Last updated by Da Alvarado MD at 02/12/20 19:45
[2020-02-12] MEDS: methylPREDNISolone SUCC 125 MG VIAL IVP (19:11)
[2020-02-12] MEDS: FAMOTIDINE 20 MG/50 ML BAG 200 MG IVPB (19:12)
[2020-02-12] MEDS: diphenhydrAMINE 50 MG/ML VIAL 25 MG IVP (19:12)
== END 2020-02-12 20:20 | disposition home or self-care (01) ==
LOC: ER 20:24
PROVIDERS: Emergency Provider Emergency Medicine; PCP Family Medicine
DX: T78.3XXA Angioneurotic edema, initial encounter (principal); T62.91XA Toxic effect of unspecified noxious substance eaten as food, accidental (unintentional), initial encounter; I10 Essential (primary) hypertension
CPT/HCPCS: 96374; 96375; 99284; J1200; J2930

== ENCOUNTER 2020-02-17 03:45 | Observation (INO) | payer BC, SELFPAY ==
[2020-02-17] VITALS (45 sets, daily range): BP systolic 150–252; BP diastolic 75–124; PULSE 65–107; RESP 10–169; TEMP 36.2–37.2; O2SAT 94–100
--- NOTE | 2020-02-17 03:45 | DI.RAD_ITS ---
EXAM: XR PORTABLE CHEST AP CLINICAL HISTORY: htn emergency, eval for mediastinal widening TECHNIQUE: 2D digital imaging was performed. COMPARISON: CR CHEST 2 VIEWS PA,LAT from 03/28/2018 FINDINGS: LUNGS: Clear. No pleural abnormality seen. HEART: Normal. MEDIASTINUM: Normal. OTHER FINDINGS: EKG leads IMPRESSION: No acute pulmonary findings. DATA REPOSITORY: RADIATION DOSE DELIVERED:
--- NOTE | 2020-02-17 03:45 | DI.CT_ITS ---
EXAM: CT BRAIN CTA CLINICAL HISTORY: headache, HTN Emergency, eval for anyurism/stroke. TECHNIQUE: Imaging Protocol: Axial CT angiography was performed with multi-slice acquisition and mu lti-planar and/or 3D reconstructions. CONTRAST MATERIAL: Intravenous: Omnipaque 350 Contrast volume:85 ml COMPARISON: No exams were available for comparison FINDINGS: Noncontrast head CT: No intracranial hemorrhage, mass or infarct is seen. The ventricles are normal in size. There is no evidence of skull fracture. The sinuses and mastoid air cells appear clear whe re visualized. CTA of the BRAIN: Internal Carotid Arteries: Petrous: Normal. Cavernous: Normal. Cerebral: Normal. Middle Cerebral Arteries: Right: No aneurysm, occlusion or significant stenosis. Left: No aneurysm, occlusion or significant stenosis. Anterior Cerebral Arteries: Right: No aneurysm, occlusion or significant stenosis. Left: No aneurysm, occlusion or significant stenosis. Posterial Cerebral Arteries: Right: No aneurysm, occlusion or significant stenosis. Left: No aneurysm, occlusion or significant stenosis. Vertebral Arteries: Right: No aneurysm, occlusion or significant stenosis. Left: No aneurysm, occlusion or significant stenosis. Basilar Artery: No aneurysm, occlusion or significant stenosis. IMPRESSION: Normal CTA examination of the brain. RADIATION DOSE DELIVERED: 953.35mGy.cm Total DLP DATA REPOSITORY: All CT scans at this facility are submitted to the National Radiology Data Registry (NRDR) Dose Index Registry (DIR) with the [employer] (A[employer]). RADIATION OPTIMIZATION: All CT scans at this facility use at least one of these dose optimization te chniques: automated exposure control; mA and/or kV adjustment per patient size (includes targeted exa ms where dose is matched to clinical indication); or iterative reconstruction.
--- NOTE | 2020-02-17 04:05 | ED.GENADUL_ITS ---
Discharge Plan Disposition Patient Disposition: [facility] INPATIENT Condition: Improving Discharge Details Chief Complaint: GenMedical Clinical Impression: Hypertensive emergency, Headache Primary Care Provider: John Sandhu ED Provider: Ollie Perdomo Home Meds and New Rx's Prescriptions: No Action sumatriptan succinate [Imitrex STATdose Pen] 6 mg/0.5 mL pen injector 6 mg subcut ONCE PRN (Reason: migraine headache) Qty: 1 RF: 6 rizatriptan [Maxalt] 10 mg tablet 10 mg PO ONCE Qty: 15 RF: 3 losartan 25 mg tablet 25 mg PO DAILY Qty: 30 RF: 0 valacyclovir [Valtrex] 500 mg tablet 1,000 mg PO BID PRNRF: 0 Medical Decision Making Upon my evaluation, this patient had a high probability of imminent or life- threatening deterioration, which required my direct attention, intervention, and personal management. I have personally provided 45 minutes of critical care time exclusive of time spent on separately billable procedures. Time includes review of laboratory data, radiology results, discussion with consultants, and monitoring for potential decompensation. Interventions were performed as documented. This is a very pleasant 49-year-old female past medical history of recent diagnosis of hypertension on a visit just this last week for an unrelated event. Patient presents this evening for evaluation of headache and hypertensive emergency. Patient states that for the last 2 to 3 months she has noticed a gradual headache, however tonight it became notably severe which she describes as a pounding sensation in the front of her head. 5 days ago when she was diagnosed with hypertension it was recommended that she follow-up closely with her PCP which she does have an appointment in 48 hours unfortunately prior to being able to see her patient's home blood pressure was noted to be elevated and her PCP called in losartan 25 mg. Patient has been taking this as directed, however yesterday she felt that her pressure was high so she doubled up took 50 mg taking 50 mg again this morning prior to arrival with her headache. Aside for the headache she denies any chest pain, numbness, tingling, weakness, fever, chills, neck pain, vomiting, diarrhea. She does have a family history of hypertension, but denies any other significant pertinent family history in regards to this. She denies any other new medication use, IV or illicit drug use, or other complaints. Physical exam demonstrates no focal neurologic deficits. Screening EKG shows no signs of STEMI or significant ischemia. Patient's blood pressure here in the emergency department on triage is notably elevated. Map is 150, systolic >240s, diastolic >120s. Symptoms are certainly concerning for hypertensive emergency. We will evaluate for endorgan damage, start a nicardipine drip for her symptomatic hypertension. We will get a CT scan of the head to rule out aneurysm, portable chest x-ray to rule out mediastinal widening. Patient otherwise remains comfortable currently. Anticipate likely admission. We will start the nicardipine drip at 5 mg/h, and titrate for an initial drop in map by 10 to 20% over the first hour, then gradual increase with a goal of a 25% drop in map during her stay. 4 AM Laboratory results have returned relatively unremarkable, troponin renal function liver function stable. TSH is notably elevated at 9.76, pending free T4. Pending CTA of the head. Also of note patient now notes that she has been taking kratom for her headaches as of late, in addition to that she also is now stating that she does have a family history of brain aneurysms in her father. Patient's blood pressure has notably improved with nicardipine infusion, systolic is now in the 190s, diastolic is in the mid 90s. We will hold the nicardipine at its current rate and continue to monitor closely. Patient's headache does persist though, we will give Ofirmev, Compazine, and Solu-Medrol. 5:[address] scan results have returned, no evidence of aneurysm or bleed or stroke. Patient's headache is notably improved. Blood pressure remains well controlled and is actually starting to go down to the 180 systolic. Not wanting to have a drop greater than 25 to 30% at this time will hold the nicardipine infusion and continue to monitor her pressure closely. Patient remained stable currently now in the ED. I do feel that with her notable hypertensive emergency, in conjunction with the difficulty controlling her pressure at home medications I feel she would benefit from a 4-hour observation/admission to monitor her pressures closely to prevent any rebound headache or hypertension, as well as to get the patient on adequate hypertension medication. Will contact the hospitalist for admission. 6:30 AM I have spoken with the hospitalist Dr. Girard, he agrees with the assessment and plan. Patient remained stable here. Of note she got very anxious and jittery with Compazine, and felt notably restless. 25 mg of IV general Benadryl were given she had notable improvement of her symptomatology in regards to the restlessness with this. I have extensively reviewed the treatment plan with the patient. I have addressed all patient concerns at this time. I have also discussed the plan with the admitting physician and they agree with the current assessment and plan and have agreed to assume responsibility for the patient. All parties demonstrate verbal understanding and agreement with our assessment and plan at this time. EKG 3: 59 Rate 69, sinus rhythm, intervals normal, no significant ST elevations or depressions, slight peaking of T waves in V2 and V3, otherwise unremarkable. FINDINGS: Lungs: Unremarkable. No consolidation. Pleural space: Unremarkable. No pleural effusion. No pneumothorax. Heart/Mediastinum: Unremarkable. No cardiomegaly. Bones/joints: Unremarkable. IMPRESSION: No acute findings. Thank you for allowing us to participate in the care of your patient. Dictated and Authenticated by: Carlos Gonzalez MD FINDINGS: Anterior cerebral arteries: No occlusion or significant stenosis. No aneurysm. Right internal carotid artery: Intracranial segment is patent with no significant stenosis or occlusion. No aneurysm. Right middle cerebral artery: No occlusion or significant stenosis. No aneurysm. Right posterior cerebral artery: No occlusion or significant stenosis. No aneurysm. Right vertebral artery: No occlusion or significant stenosis. No aneurysm. Left internal carotid artery: Intracranial segment is patent with no significant stenosis or occlusion. No aneurysm. Left middle cerebral artery: No occlusion or significant stenosis. No aneurysm. Left posterior cerebral artery: No occlusion or significant stenosis. No aneurysm. Left vertebral artery: No occlusion or significant stenosis. No aneurysm. Basilar artery: No occlusion or significant stenosis. No aneurysm. IMPRESSION: No large vessel stenosis or occlusion. Thank you for allowing us to participate in the care of your patient. Dictated and Authenticated by: Adan Berry MD 02/17/2020 5:20 AM Eastern Time ([place] & [place]) HPI General Date/Time Provider Initiated Documentation: 02/17/20 03:48 . HPI Narrative: This is a very pleasant 49-year-old female past medical history of recent diagnosis of hypertension on a visit just this last week for an unrelated event. Patient presents this evening for evaluation of headache and hypertensive emergency. Patient states that for the last 2 to 3 months she has noticed a gradual headache, however tonight it became notably severe which she describes as a pounding sensation in the front of her head. 5 days ago when she was diagnosed with hypertension it was recommended that she follow-up closely with her PCP which she does have an appointment in 48 hours unfortunately prior to being able to see her patient's home blood pressure was noted to be elevated and her PCP called in losartan 25 mg. Patient has been taking this as directed, however yesterday she felt that her pressure was high so she doubled up took 50 mg taking 50 mg again this morning prior to arrival with her headache. Aside for the headache she denies any chest pain, numbness, tingling, weakness, fever, chills, neck pain, vomiting, diarrhea. She does have a family history of hypertension, but denies any other significant pertinent family history in regards to this. She denies any other new medication use, IV or illicit drug use, or other complaints. Related Data Home Medications Medication Instructions Recorded Confirmed rizatriptan 10 mg tablet 10 mg PO ONCE #15 tab-cap 06/29/19 02/17/20 sumatriptan succinate 6 mg/0.5 mL 6 mg SUBCUT ONCE PRN #1 ml 06/29/19 02/17/20 subcutaneous pen injector valacyclovir [Valtrex] 1,000 mg PO BID PRN 07/04/19 02/17/20 losartan 25 mg tablet 25 mg PO DAILY #30 tab 02/15/20 02/17/20 Previous Rx's Medication Instructions Recorded rizatriptan 10 mg tablet 10 mg PO ONCE #15 tab-cap 06/29/19 sumatriptan succinate 6 mg/0.5 mL 6 mg SUBCUT ONCE PRN #1 ml 06/29/19 subcutaneous pen injector losartan 25 mg tablet 25 mg PO DAILY #30 tab 02/15/20 Allergies Allergy/AdvReac Type Severity Reaction Status Date / Time Sulfa (Sulfonamide Allergy Severe THROAT Verified 02/17/20 04:16 Antibiotics) CLOSES OFF General CRISTOPHER: 3 Review of Systems All systems reviewed & are unremarkable except as noted in HPI and below PFSH Medical History Anxiety (Chronic) Breast calcifications on mammogram (Acute) Cervico-occipital neuralgia (Acute) Chronic constipation (Chronic) Cyst of ovary (Acute) Cystitis (Acute) Depersonalization-derealization syndrome (Acute) Disorder of shoulder (Acute) Dysuria (Chronic) Essential hypertension (Chronic) Flushing (Acute) Kidney stone (Chronic) Migraine without aura (Chronic) Onychomycosis (Acute) Panic disorder (Chronic) Paroxysmal atrial fibrillation (Resolved) Sciatica (Chronic) Screening for colon cancer (Acute) Surgical History H/O bladder repair surgery (Chronic ~10/20/15) Tension Free Vaginal Tape Procedure: ARUNA H/O lithotripsy (Acute) S/P arthroscopy of left shoulder (Acute ~2012) S/P arthroscopy of shoulder (Acute) w/SAD & Ant.Acromioplasty S/P hysterectomy (Acute ~05/21/09) S/P tubal ligation (Acute ~09/05/93) Family History Father Aneurysm Heart disease Mother No problems noted. 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 3.ENT: Atraumatic external nose and ears. Moist MM. Neck: Symmetric, trachea midline, No thyromegaly. 4.CVS: +S1/S2, No murmurs or gallops. Peripheral pulses 2+ and equal in all extremities. Brisk capillary refill in all extremities. 5.RESP: Unlabored respiratory effort. Clear to auscultation bilaterally. No wheezes rales or rhonchi 6.GI: Soft, Nontender/Nondistended, No hepatosplenomegaly. No guarding or rebound. 7.MSK: Normocephalic/Atraumatic, Extremities w/o deformity or ttp No cyanosis or clubbing, Normal movement of all extremities 8.Skin: Warm, Dry. No rashes or lesions. 9.Neuro: family independence case manager II-XII grossly intact. Sensation grossly intact, no focal neurologic deficits. 10.Psych: (AAO) x3. Appropriate mood and affect
[2020-02-17 04:06] LABS: Abs Immature Grans 0.02 k/cumm (0.0-0.09); Absolute Basophil Count 0.03 k/cumm (0.0-0.2); Absolute Eosinophil Count 0.31 k/cumm (0.0-0.7); Absolute Lymphocyte Count 3.84 k/cumm (1.2-3.4); Absolute Monocyte Count 0.64 k/cumm (0.11-0.7); Absolute Neutrophil Count 3.45 k/cumm (1.2-6.7); Basophils % 0.4; Eosinophils % 3.7; HCT 43.4 % (36.0-46.0); HGB 15.1 g/dL (12.0-15.5); Immature Grans % 0.2 %; Lymphocytes % 46.3; Mean Corp. HGB Concentration 34.8 g/dL (32.0-36.0); Mean Corpuscular Hemoglobin 29.8 pg (27.0-33.0); Mean Corpuscular Volume 85.6 fL (80-95); Mean Platelet Volume 9.9 fL (8.0-11.0); Monocytes % 7.7; Neutrophils % 41.7; Platelet Count 271 x1000/uL (130-400); RBC 5.07 m/cumm (4.00-5.20); RBC Distribution Width 13.3 % (11.7-14.6); White Blood Cell Count 8.29 k/cumm (4.4-10.8)
[2020-02-17 04:26] LABS: Prothrombin Time 10.1 sec (9.3-11.0)
[2020-02-17] MEDS: niCARdipine 25 MG in Normal Saline 240 ML 50 MG IV (04:27)
[2020-02-17 04:28] LABS: ALT 32 U/L (14-59); AST 13 U/L (15-37); Albumin 3.9 g/dL (3.4-5.0); Alkaline Phosphatase 69 U/L (46-116); Anion Gap 7.6 mmol/L (3-11); BUN 15 mg/dL (7-18); Bilirubin, Total 0.4 mg/dL (0.2-1.0); CO2 29.4 mmol/L (21.0-32.0); Calcium 8.6 mg/dL (8.5-10.1); Chloride 101 mmol/L (98-107); Estimated GFR 58.69 (mL/min/1.73m2); Glucose 101 mg/dL (74-106); Potassium 3.6 mmol/L (3.5-5.1); Sodium 138 mmol/L (136-145); TSH (W/Ref FT4) 9.76 uIU/mL (0.36-3.74); Total Protein 7.3 g/dL (6.4-8.2); Troponin I < 0.05 ng/mL (<0.06)
--- NOTE | 2020-02-17 04:30 | DI.VRAD_ITS ---
PROCEDURE INFORMATION: Exam: XR Chest, 1 View Exam date and time: 02/17/2020 3:58 AM Age: 49 years old Clinical indication: Screening exam; Other screening; Patient HX: HTN emergency; Please eval for mediastinal widening TECHNIQUE: Imaging protocol: XR of the chest Views: 1 view. COMPARISON: CR CHEST 2 VIEWS PA,LAT 03/28/2018 9:04 AM FINDINGS: Lungs: Unremarkable. No consolidation. Pleural space: Unremarkable. No pleural effusion. No pneumothorax. Heart/Mediastinum: Unremarkable. No cardiomegaly. Bones/joints: Unremarkable. IMPRESSION: No acute findings. Dictated and Authenticated by: Carlos Gonzalez MD. Ordering:APOLONIA Levin MD
[2020-02-17] MEDS: Omnipaque 350 MG/ML 100 ML BTL IJ (04:37)
[2020-02-17 05:00] LABS: FREE T4 1.02 ng/dL (0.76-1.46)
[2020-02-17] MEDS: Normal Saline - Diluent 50 ML VIAL IV (05:09)
--- NOTE | 2020-02-17 05:20 | DI.VRAD_ITS ---
PROCEDURE INFORMATION: Exam: CT Angiography Head With Contrast Exam date and time: 02/17/2020 4:57 AM Age: 49 years old Clinical indication: Pain; Patient HX: Headache, HTN emergency; Additional info: Eval for anyurism/stroke TECHNIQUE: Imaging protocol: Computed tomography angiography of the head with intravenous contrast. 3D rendering: MIP and/or 3D reconstructed images were created by the technologist. COMPARISON: No relevant prior studies available. FINDINGS: Anterior cerebral arteries: No occlusion or significant stenosis. No aneurysm. Right internal carotid artery: Intracranial segment is patent with no significant stenosis or occlusion. No aneurysm. Right middle cerebral artery: No occlusion or significant stenosis. No aneurysm. Right posterior cerebral artery: No occlusion or significant stenosis. No aneurysm. Right vertebral artery: No occlusion or significant stenosis. No aneurysm. Left internal carotid artery: Intracranial segment is patent with no significant stenosis or occlusion. No aneurysm. Left middle cerebral artery: No occlusion or significant stenosis. No aneurysm. Left posterior cerebral artery: No occlusion or significant stenosis. No aneurysm. Left vertebral artery: No occlusion or significant stenosis. No aneurysm. Basilar artery: No occlusion or significant stenosis. No aneurysm. IMPRESSION: No large vessel stenosis or occlusion. Dictated and Authenticated by: Adan Berry MD. Ordering:APOLONIA Levin MD
[2020-02-17] MEDS: Prochlorperazine 10 MG/2 ML VIAL IVP (05:23)
[2020-02-17] MEDS: ACETAMINOPHEN 1,000 MG/100 ML BTL 400 MG IVPB (05:23)
[2020-02-17] MEDS: methylPREDNISolone SUCC 125 MG VIAL IVP (05:23)
--- NOTE | 2020-02-17 05:24 | NUR.NOTE ---
Nursing Note: 0510- Provider made aware pt's MAP had decreased to 115. Nicardipine drip stopped at this time, provider aware. Will continue to monitor BP regularly.
[2020-02-17] MEDS: diphenhydrAMINE 50 MG/ML VIAL 25 MG IVP (05:50)
--- NOTE | 2020-02-17 07:15 | W.PM.HP.N ---
Date of service: 02/17/20 Time of Service: 07:15 Assessment and Plan Assessment and plan (1) Hypertensive emergency: Start date: 02/17/20 Status: Acute Assessment and plan: This is a 49-year-old lady with a history of recent onset of increased blood pressure requiring treatment and presented to the ED and hypertensive crisis. She did respond to a Cardene drip and now is on oral therapy initiating diltiazem and continuing higher dose losartan. Her lab was unrevealing except for elevated TSH with normal free T4. She does have a cardiac murmur but no abdominal bruits. Plan should include echocardiogram and further work-up for secondary hypertension including renin angiotensin system and renal artery stenosis. Her associated headache is resolving she does have a history of migraines which are different than this presentation. Her imaging was unrevealing. She will be admitted to observation to assure better control of her high blood pressure with oral therapy adjustment and appropriate further outpatient work-up of the above discussion. (2) Migraine without aura: Status: Chronic Assessment and plan: Patient has chronic migraine headaches and this can be continued to be treated the same with caution uses of her triptan's with her hypertension. Adjustment this therapy may depend on further evaluation of her heart murmur and uncontrolled hypertension. Consideration of a beta-mami for blood pressure control and migraine prophylaxis should be reviewed as an outpatient. Qualifiers: Status migrainosus presence: without status migrainosus Intractability: not intractable Qualified Code(s): G43.009 - Migraine without aura, not intractable, without status migrainosus History of Present Illness History of Present Illness Chief Complaint: Pounding headache with uncontrolled blood pressure. Narrative: This is a 49-year-old female patient who has a chronic history of migraine headaches but over the last 2 mponths has been having more severe headaches atypical of her usual migraines being pounding, bilateral and over her forehead. She was seen by her PCP in the last couple weeks and noted to have hypertension with initiation of therapy with losartan 25 mg daily. Her home blood pressure measurements have began to increase with her increasing headache and she self increased her losartan to 50 mg twice a day the day prior to presentation to the ED. In the ED she was in hypertensive crisis with headache which was severe but had no focalizing neurological complaints and no complaints of chest pain. 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 Review of Systems Narrative: 13 point review of systems otherwise unrevealing or stable. Patient has had migraine headaches but now realizes she was having headaches from her high blood pressure recently which are different in characteristics. She has a history of a heart murmur but does not know which valve is involved. [facility] Medical History (Updated 02/17/20 @ 10:56 by Antoni Girard) Anxiety (Chronic) Breast calcifications on mammogram (Acute) Cervico-occipital neuralgia (Acute) Chronic constipation (Chronic) Cyst of ovary (Acute) Cystitis (Acute) Depersonalization-derealization syndrome (Acute) Disorder of shoulder (Acute) Dysuria (Chronic) Essential hypertension (Chronic) Flushing (Acute) Kidney stone (Chronic) Migraine without aura (Chronic) Onychomycosis (Acute) Panic disorder (Chronic) Paroxysmal atrial fibrillation (Resolved) Recurrent cold sores (Acute) Sciatica (Chronic) Screening for colon cancer (Acute) Surgical History H/O bladder repair surgery (Chronic ~10/20/15) Tension Free Vaginal Tape Procedure: ARUNA H/O lithotripsy (Acute) S/P arthroscopy of left shoulder (Acute ~2012) S/P arthroscopy of shoulder (Acute) w/SAD & Ant.Acromioplasty S/P hysterectomy (Acute ~05/21/09) S/P tubal ligation (Acute ~09/05/93) Family History Father Aneurysm Heart disease Mother No problems noted. 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 Pets and animals: Yes Pets and animals: dog(s) What is your relationship status?: Panel score (0-1 are the most socially isolated patients): 1 What type of physical activity do you participate in: regular exercise Frequency: 3-4 times per week Seatbelt use: always Drive intox or ride w/intox driver license technician: No Do you feel safe at home: Yes Do you feel safe in your relationship?: Yes Female Reproductive History Menstrual Menopause type: surgical History History 2 Para 2 Hx # Term Pregnancies Multiple births Hx # Pregnancies Ectopic pregnancies AB induced Hx Number of Living Children AB spontaneous Meds Home Medications and Allergies Home Medications Medication Instructions Recorded Confirmed Type rizatriptan 10 mg tablet 10 mg PO ONCE #15 tab-cap 06/29/19 02/17/20 Rx sumatriptan succinate 6 mg/0.5 mL 6 mg SUBCUT ONCE PRN #1 ml 06/29/19 02/17/20 Rx subcutaneous pen injector valacyclovir [Valtrex] 1,000 mg PO BID PRN 07/04/19 02/17/20 History losartan 25 mg tablet 25 mg PO DAILY #30 tab 02/15/20 02/17/20 Rx Allergies Allergy/AdvReac Type Severity Reaction Status Date / Time Sulfa (Sulfonamide Allergy Severe THROAT Verified 02/17/20 04:16 Antibiotics) CLOSES OFF Exam Narrative Exam Narrative: General: Patient appears appropriate for age, in moderate distress from her headache but alert and oriented x3. Skin: Color normal brown, no rashes noted, warm to touch. No significant lesions. HEENT: Normocephalic, eyes with pupils equal and reactive light symmetrically, extraocular movement intact and sclera anicteric. Oropharynx with moist mucosa and normal dentition. External ears and nose normal. Neck: Supple without JVD and no auscultated bruits. Back: Normal posture and no CVA tenderness. Lungs: Clear to auscultation and percussion. Breast: Exam deferred. Heart: Regular rate and rhythm with 3/6 systolic murmur loudest over right upper sternal border but also auscultated over the left sternal border and apex. No gallops or rubs appreciated. Abdomen: Normal contour, soft and nontender to palpation with palpable hepatosplenomegaly. Bowel sounds positive all quadrants. No auscultated bruits. Genitalia/rectal: Exam deferred. Extremities: No clubbing, cyanosis or pitting edema. Peripheral pulses intact. All joints have fair range of motion. Neuro: Cranial nerves II through XII grossly intact, no focalizing motor deficits, no tremor. No Babinski's. DTRs sluggish and symmetrical. Psych: Slightly flattened affect but good eye contact and normal variation. Patient is sedated from her recent dose of Benadryl. Remote and recent memory intact. No abnormal thought processes. Results Imaging Imaging Studies: Exam: XR Chest, 1 View Exam date and time: 02/17/2020 3:58 AM Age: 49 years old Clinical indication: Screening exam; Other screening; Patient HX: HTN emergency; Please eval for mediastinal widening TECHNIQUE: Imaging protocol: XR of the chest Views: 1 view. COMPARISON: CR CHEST 2 VIEWS PA,LAT 03/28/2018 9:04 AM FINDINGS: Lungs: Unremarkable. No consolidation. Pleural space: Unremarkable. No pleural effusion. No pneumothorax. Heart/Mediastinum: Unremarkable. No cardiomegaly. Bones/joints: Unremarkable. IMPRESSION: No acute findings. Dictated and Authenticated by: Carlos Gonzalez MD. Exam: CT Angiography Head With Contrast Exam date and time: 02/17/2020 4:57 AM Age: 49 years old Clinical indication: Pain; Patient HX: Headache, HTN emergency; Additional info: Eval for anyurism/stroke TECHNIQUE: Imaging protocol: Computed tomography angiography of the head with intravenous contrast. 3D rendering: MIP and/or 3D reconstructed images were created by the technologist. COMPARISON: No relevant prior studies available. FINDINGS: Anterior cerebral arteries: No occlusion or significant stenosis. No aneurysm. Right internal carotid artery: Intracranial segment is patent with no significant stenosis or occlusion. No aneurysm. Right middle cerebral artery: No occlusion or significant stenosis. No aneurysm. Right posterior cerebral artery: No occlusion or significant stenosis. No aneurysm. Right vertebral artery: No occlusion or significant stenosis. No aneurysm. Left internal carotid artery: Intracranial segment is patent with no significant stenosis or occlusion. No aneurysm. Left middle cerebral artery: No occlusion or significant stenosis. No aneurysm. Left posterior cerebral artery: No occlusion or significant stenosis. No aneurysm. Left vertebral artery: No occlusion or significant stenosis. No aneurysm. Basilar artery: No occlusion or significant stenosis. No aneurysm. IMPRESSION: No large vessel stenosis or occlusion. Dictated and Authenticated by: Adan Berry MD. Labs Result diagrams: 02/17/20 03:49 02/17/20 03:49 Labs: Laboratory Results - last 24 hr 02/17/20 02/17/20 02/17/20 03:49 03:49 03:49 WBC 8.29 RBC 5.07 Hgb 15.1 Hct 43.4 MCV 85.6 MCH 29.8 MCHC 34.8 RDW 13.3 Plt Count 271 MPV 9.9 Immature Gran % 0.2 Neutrophils % 41.7 Lymphocytes % 46.3 Monocytes % 7.7 Eosinophils % 3.7 Basophils % 0.4 Absolute Neutrophils 3.45 Absolute Lymphocytes 3.84 H Absolute Monocytes 0.64 Absolute Eosinophils 0.31 Absolute Basophils 0.03 PT 10.1 INR 1.0 APTT 24.0 Sodium 138 Potassium 3.6 Chloride 101 Carbon Dioxide 29.4 Anion Gap 7.6 BUN 15 Creatinine 1.00 Estimated GFR/1.73 m2 58.69 Glucose 101 Calcium 8.6 Total Bilirubin 0.4 AST 13 L ALT 32 Alkaline Phosphatase 69 Troponin I < 0.05 Total Protein 7.3 Albumin 3.9 TSH 9.76 H Free T4 1.02 Last Vital Signs Temp 36.6 C 02/17/20 06:56 Pulse 82 02/17/20 06:56 Resp 18 02/17/20 06:56 BP 196/101 H 02/17/20 06:56 Pulse Ox 98 02/17/20 06:56 COVID-19 Screening In the past 14 days, have you traveled outside of [place] or [place]?: NO Had IN PERSON contact w/suspected or confirmed C-19 person: No
[2020-02-17] MEDS: dilTIAZem 60 MG TAB PO ×2 (07:49→13:38)
[2020-02-17 08:10] LABS: Magnesium 2.2 mg/dL (1.8-2.4)
[2020-02-17] MEDS: amLODIPine 5 MG TAB PO ×2 (09:12→19:34)
--- NOTE | 2020-02-17 10:28 | PDOC.CMIN ---
- If Service Date Differs Date of service: 02/17/20 Time of Service: 10:28 Care Management Initial Assess REASON FOR HOSPITALIZATION:: Hypertensive emergency PAST MEDICAL HISTORY/PAST SURGICAL HISTORY:: Medical History (Updated 02/17/20 @ 07:27 by Antoni Girard). Anxiety (Chronic). Breast calcifications on mammogram (Acute). Cervico-occipital neuralgia (Acute). Chronic constipation (Chronic). Cyst of ovary (Acute). Cystitis (Acute). Depersonalization-derealization syndrome (Acute). Disorder of shoulder (Acute). Dysuria (Chronic). Essential hypertension (Chronic). Flushing (Acute). Kidney stone (Chronic). Migraine without aura (Chronic). Onychomycosis (Acute). Panic disorder (Chronic). Paroxysmal atrial fibrillation (Resolved). Recurrent cold sores (Acute). Sciatica (Chronic). Screening for colon cancer (Acute). Surgical History . H/O bladder repair surgery (Chronic ~10/20/15). Tension Free Vaginal Tape Procedure: ARUNA. H/O lithotripsy (Acute). S/P arthroscopy of left shoulder (Acute ~2012). S/P arthroscopy of shoulder (Acute). w/SAD & Ant.Acromioplasty. S/P hysterectomy (Acute ~05/21/09). S/P tubal ligation (Acute ~09/05/93) PREVIOUS FUNCTIONAL STATUS/SOCIAL/FAMILY SUPPORTS:: Christelle lives in [facility] with her , Michael. 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 She has adult children and one grandchild who is 3mo old. She is independent at baseline. CURRENT FUNCTIONAL STATUS:: Christelle was lying in bed when CM met with her. She reported that she is feeling better today, and per provider, she may be able to return home if her blood pressures are under control. CM spoke with the provider later in the day who stated that she would be observed overnight prior to discharge. CM will continue to follow. ADVANCE DIRECTIVES:: None on file. Has patient been provided with info about the portal/API?: No Did the patient sign up for the portal?: No CODE STATUS:: Full Code INSURANCE COVERAGE / FINANCIAL ISSUES:: [employer] CURRENT HOME/COMMUNITY SERVICES/EQUIPMENT:: Christelle currently does not have any equipment or services in the community. PRIMARY CARE PHYSICIAN:: John Sandhu POTENTIAL DISCHARGE NEEDS:: Evaluations for further needs, follow up appointments PATIENT/FAMILY EDUCATION NEEDS:: Review discharge instructions regarding activity levels and medications, discussion of self care needs including ask me three ANTICIPATED BARRIERS TO DISCHARGE:: None identified at this time. TRANSPORTATION:: Via private vehicle by family. PLAN:: Anticipate Christelle will return home when medically cleared with no anticipated services. She will follow up with her PCP and discharge plan of care. She will be driven home by family when ready via private vehicle. CM will continue to follow.
[2020-02-17] MEDS: Acetaminophen 325 MG TAB PO (11:56)
[2020-02-17] MEDS: Butalbital/Acetaminophen/Caffeine 50/325/40 TAB PO (15:06)
[2020-02-17 15:08] LABS: COVID-19 RT-PCR UVMMC Result Negative (Negative)
[2020-02-17] MEDS: Ibuprofen 600 MG TAB PO (15:19)
[2020-02-17] MEDS: Metoprolol 5 MG/5 ML VIAL 2.5 MG IVP ×2 (15:45→23:12)
[2020-02-17] MEDS: Losartan 25 MG TAB PO (19:34)
[2020-02-17] MEDS: Normal Saline Flush 10 ML SYR IVP (22:05)
[2020-02-18 03:41] VITALS: BP 155/92; PULSE 71; RESP 18; TEMP 36.8; O2SAT 98
[2020-02-18 07:18] LABS: HCT 43.5 % (36.0-46.0); HGB 15.3 g/dL (12.0-15.5); Mean Corp. HGB Concentration 35.2 g/dL (32.0-36.0); Mean Corpuscular Hemoglobin 30.1 pg (27.0-33.0); Mean Corpuscular Volume 85.5 fL (80-95); Platelet Count 315 x1000/uL (130-400); RBC 5.09 m/cumm (4.00-5.20); RBC Distribution Width 13.5 % (11.7-14.6); White Blood Cell Count 16.17 k/cumm (4.4-10.8)
[2020-02-18 07:20] VITALS: BP 158/94; PULSE 73; RESP 19; TEMP 35.8; O2SAT 97
[2020-02-18 07:34] LABS: ALT 28 U/L (14-59); AST 10 U/L (15-37); Alkaline Phosphatase 68 U/L (46-116); Anion Gap 7.2 mmol/L (3-11); BUN 17 mg/dL (7-18); Bilirubin, Total 0.6 mg/dL (0.2-1.0); CO2 28.8 mmol/L (21.0-32.0); CREATININE 0.91 mg/dL (0.55-1.02); Calcium 9.3 mg/dL (8.5-10.1); Chloride 102 mmol/L (98-107); Glucose 127 mg/dL (74-106); Potassium 4.1 mmol/L (3.5-5.1); Sodium 138 mmol/L (136-145); Total Protein 7.5 g/dL (6.4-8.2)
--- NOTE | 2020-02-18 08:12 | DSE_ITS ---
Date of service: 02/18/20 Time of Service: 08:24 DS: Diagnosis Discharge Diagnosis (1) Hypertensive emergency: Start date: 02/18/20 Start time: 08:24 Status: Acute Asessment and Plan: Admitted with BP as high as 252/115, newly diagnosed with HTN, prior to arrival she tried to increase dose of losartan wihtout effectiveness. She also presented with migraine. She was started on amlodipine 5 mg BID, propanolol 80 mg in the evening for both HTN and migraine. Today her blood pressure is 158/94, she feels much better. She has a follow up appt with her PCP tomorrow. Goal was under 160 systolically and 100 diastolic. Due to improvement I am comfortable sending her home. She did have an elevated WBC today, however she was given solumedrol in ED yesterday, she does not present with any infectious sx afebrile, will defer to PCP if they want to recheck WBC. (2) Migraine without aura: Start date: 02/18/20 Start time: 08:31 Status: Chronic Asessment and Plan: Given fioricet with migraine relief. She does see neurology for migraines she will follow up with neurology. Discharge Plan Disposition Patient Disposition: HOME Condition: Good Discharge Details Chief Complaint: GenMedical Clinical Impression: Hypertensive emergency, Headache Reason For Visit: HYPERTENSIVE EMERGENCY Admit Date/Time: 02/17/20 06:19 Admit Provider: Antoni Girard Attending Provider: Antoni Girard Primary Care Provider: John Sandhu ED Provider: Ollie Perdomo Hospital Course Hospital Course: This is a 49-year-old female patient who has a chronic history of migraine headaches but over the last 2 months has been having more severe headaches atypical of her usual migraines being pounding, bilateral and over her forehead. She was seen by her PCP in the last couple weeks and noted to have hypertension with initiation of therapy with losartan 25 mg daily. Her home blood pressure measurements have began to increase with her increasing headache and she self increased her losartan to 50 mg twice a day the day prior to presentation to the ED. In the ED she was in hypertensive crisis with headache which was severe but had no focalizing neurological complaints and no complaints of chest pain. 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 She was started on amlodipine and propanolol for migraines and HTN, she did receive a dose of fioricet yesterday for her migraine which gave her relief. Today blood pressure is 158/94 and she feels much better. Her WBC was elevated however solumedrol was given in the ED yesterday, I will defer to her PCP for further management, she is afebrile, without cough of complaints of illness. She denies CP, SOB, N/V/D. She is being discharged home with new prescriptions for blood pressure, she has a follow up with her PCP tomorrow and she will follow up with Dr. Bernardo regarding Migraines. Home Meds and New Rx's Prescriptions: New amlodipine 5 mg Tablet 5 mg PO BID Qty: 28 RF: 0 hamnhlgfxf-qeuboxrteazdx-qkgg 50-325-40 mg Tablet 1 tab PO Q4H PRN PRNQty: 28 RF: 0 propranolol 80 mg tablet 80 mg PO HS Qty: 14 RF: 0 qsxaihwvgx-yreyeacdhuiml-ppee [Fioricet] 50-300-40 mg capsule 1 cap PO Q8H PRNQty: 14 RF: 0 Continued sumatriptan succinate [Imitrex STATdose Pen] 6 mg/0.5 mL pen injector 6 mg subcut ONCE PRN (Reason: migraine headache) Qty: 1 RF: 6 rizatriptan [Maxalt] 10 mg tablet 10 mg PO ONCE Qty: 15 RF: 3 losartan 25 mg tablet 25 mg PO DAILY Qty: 30 RF: 0 valacyclovir [Valtrex] 500 mg tablet 1,000 mg PO BID PRNRF: 0 Discharge Instructions Instructions: Migraine Headache (GEN), DASH Eating Plan (DC), Hypertension (DC) Additional Instructions: Keep appointment with PCP for tomorrow. Follow up with Dr. Bernardo for Migraines Take fioricet as needed for migraines do not exceed 6 tabs in 24 hours, can cause rebound headaches Dash diet Check blood pressure twice a day after sitting for 10 mins Referrals: Chanel Bernardo MD [ [facility] STAFF PHYSICIAN] - (Migraine management) Activity:: Activity as Tolerated Equipment/Supplies:: No Equipment Needed Diet:: Low Sodium Discharge Orders Discharge Orders: Discharge Order (Routine); Ordered 02/18/20 Ordered By: Aliyah Carrillo DS: Summary Status at Discharge Functional status at discharge: independent ambulation Overall status at discharge: patient is back to baseline Mental Status: mental status grossly normal Speech and Movement: speech and movement normal Mood: congruent mood Affect: normal affect Exam Narrative Exam Narrative: General: Patient appears appropriate for age, AAOx3, no SANDOVAL, feeling improved. Skin: Color normal brown, no rashes noted, warm to touch. No significant lesions. HEENT: Normocephalic, eyes with pupils equal and reactive light symmetrically, extraocular movement intact and sclera anicteric. Oropharynx with moist mucosa and normal dentition. External ears and nose normal. Neck: Supple without JVD and no auscultated bruits. Back: Normal posture and no CVA tenderness. Lungs: Clear to auscultation and percussion. Breast: Exam deferred. Heart: Regular rate and rhythm with 3/6 systolic murmur loudest over right upper sternal border but also auscultated over the left sternal border and apex. No gallops or rubs appreciated. Abdomen: Normal contour, soft and nontender to palpation with palpable hepatosplenomegaly. Bowel sounds positive all quadrants. No auscultated bruits. Genitalia/rectal: Exam deferred. Extremities: No clubbing, cyanosis or pitting edema. Peripheral pulses intact. All joints have fair range of motion. Neuro: Cranial nerves II through XII grossly intact, no focalizing motor deficits, no tremor. No Babinski's. DTRs sluggish and symmetrical. Psych Mental Status: mental status grossly normal Speech and Movement: speech and movement normal Mood: congruent mood Affect: normal affect DS: Data Vitals/I&O Vitals and I&O: Vital Signs Temperature 35.8 C L 02/18/20 07:20 Temperature Source Tympanic 02/18/20 07:20 Pulse 73 02/18/20 07:20 Pulse Rhythm Regular 02/18/20 07:55 Pulse 66 02/17/20 06:32 Respiratory Rate 19 02/18/20 07:20 Respiratory Effort Non-Labored 02/18/20 07:55 Respiratory Depth Normal 02/18/20 07:55 Respiratory Pattern Normal 02/18/20 07:55 Blood Pressure 158/94 H 02/18/20 07:20 Blood Pressure Mean 101 02/17/20 06:32 Blood Pressure Position Supine 02/17/20 03:50 Pulse Oximetry 97 02/18/20 07:20 Oxygen Delivery Method Room Air 02/18/20 07:20 Oxygen Flow Rate 0 02/18/20 07:20 Pain Level 0 02/18/20 07:20 Comment 02/17/20 04:30 Intake & Output 02/17/20 02/17/20 02/18/20 11:59 23:59 11:59 Intake Total 635.833 / 2145.833 1510 / 2145.833 Balance 635.833 / 2145.833 1510 / 2145.833 Weight 81.647 kg 80.9 kg Intake: IV 155.833 / 155.833 Oral 1989 Other: Comment independant independant to the bathroom independant Voiding Methods Toilet Toilet Toilet Data Completed and Pending Completed studies during hospitalization [Text1]: TECHNIQUE: Imaging protocol: XR of the chest Views: 1 view. COMPARISON: CR CHEST 2 VIEWS PA,LAT 03/28/2018 9:04 AM FINDINGS: Lungs: Unremarkable. No consolidation. Pleural space: Unremarkable. No pleural effusion. No pneumothorax. Heart/Mediastinum: Unremarkable. No cardiomegaly. Bones/joints: Unremarkable. IMPRESSION: No acute finding FINDINGS: Anterior cerebral arteries: No occlusion or significant stenosis. No aneurysm. Right internal carotid artery: Intracranial segment is patent with no significant stenosis or occlusion. No aneurysm. Right middle cerebral artery: No occlusion or significant stenosis. No aneurysm. Right posterior cerebral artery: No occlusion or significant stenosis. No aneurysm. Right vertebral artery: No occlusion or significant stenosis. No aneurysm. Left internal carotid artery: Intracranial segment is patent with no significant stenosis or occlusion. No aneurysm. Left middle cerebral artery: No occlusion or significant stenosis. No aneurysm. Left posterior cerebral artery: No occlusion or significant stenosis. No aneurysm. Left vertebral artery: No occlusion or significant stenosis. No aneurysm. Basilar artery: No occlusion or significant stenosis. No aneurysm. IMPRESSION: No large vessel stenosis or occlusion. Labs on day of discharge: Labs from last 24 hours 02/18/20 02/18/20 02/18/20 07:00 07:00 07:00 WBC 16.17 H D RBC 5.09 Hgb 15.3 Hct 43.5 MCV 85.5 MCH 30.1 MCHC 35.2 RDW 13.5 Plt Count 315 MPV 10.0 Sodium 138 Potassium 4.1 Chloride 102 Carbon Dioxide 28.8 Anion Gap 7.2 BUN 17 Creatinine 0.91 Estimated GFR/1.73 m2 >= 60.00 Glucose 127 H Calcium 9.3 Total Bilirubin 0.6 AST 10 L ALT 28 Alkaline Phosphatase 68 Total Protein 7.5 Albumin 4.0 Renin Activity Pending Aldosterone Pending COVID-19 PCR Nasopharyn COVID-19 PCR Ref Test Perform Site 02/17/20 05:47 WBC RBC Hgb Hct MCV MCH MCHC RDW Plt Count MPV Sodium Potassium Chloride Carbon Dioxide Anion Gap BUN Creatinine Estimated GFR/1.73 m2 Glucose Calcium Total Bilirubin AST ALT Alkaline Phosphatase Total Protein Albumin Renin Activity Aldosterone COVID-19 PCR Negative Nasopharyn COVID-19 PCR Not Applicable Ref Test Perform Site [facility] Medical History Anxiety (Chronic) Breast calcifications on mammogram (Acute) Cervico-occipital neuralgia (Acute) Chronic constipation (Chronic) Cyst of ovary (Acute) Cystitis (Acute) Depersonalization-derealization syndrome (Acute) Disorder of shoulder (Acute) Dysuria (Chronic) Essential hypertension (Chronic) Flushing (Acute) Kidney stone (Chronic) Migraine without aura (Chronic) Onychomycosis (Acute) Panic disorder (Chronic) Paroxysmal atrial fibrillation (Resolved) Recurrent cold sores (Acute) Sciatica (Chronic) Screening for colon cancer (Acute) Surgical History H/O bladder repair surgery (Chronic ~10/20/15) Tension Free Vaginal Tape Procedure: ARUNA H/O lithotripsy (Acute) S/P arthroscopy of left shoulder (Acute ~2012) S/P arthroscopy of shoulder (Acute) w/SAD & Ant.Acromioplasty S/P hysterectomy (Acute ~05/21/09) S/P tubal ligation (Acute ~09/05/93) Family History Father Aneurysm Heart disease Mother No problems noted. 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 Pets and animals: Yes Pets and animals: dog(s) What is your relationship status?: Panel score (0-1 are the most socially isolated patients): 1 What type of physical activity do you participate in: regular exercise Frequency: 3-4 times per week Seatbelt use: always Drive intox or ride w/intox bottom hoop driver: No Do you feel safe at home: Yes Do you feel safe in your relationship?: Yes Female Reproductive History Menstrual Menopause type: surgical History History 2 Para 2 Hx # Term Pregnancies Multiple births Hx # Pregnancies Ectopic pregnancies AB induced Hx Number of Living Children AB spontaneous
[2020-02-18] MEDS: Losartan 25 MG TAB PO (08:18)
[2020-02-18] MEDS: amLODIPine 5 MG TAB PO (08:18)
--- NOTE | 2020-02-18 15:39 | PDOC.CMDIS ---
- If Service Date Differs Date of service: 02/18/20 Time of Service: 15:39 LACE Index Scoring Tool - Questions: Length of Stay (in days): 2 Acuity (Admit via E.D.?): Yes E.D. Visits: 2 - Answers: Total Score: 7 Risk of Readmission: Low Risk Care Management Discharge Reason for Hospitalization: Hypertensive emergency Discharge Plan: Christelle will return home with no additional services at this time. She will follow up with her PCP and discharge plan of care. Her will drive her home via private vehicle. She is happy to be going home. Patient/Family Education Needs: Review discharge instructions regarding activity levels and medications, discussion of self care needs including ask me three.
[2020-02-22 19:10] LABS: Renin Activity, Plasma <0.6 ng/mL/h
== END 2020-02-18 09:18 | disposition home or self-care (01) ==
LOC: ER 06:25 → MS 06:50
PROVIDERS: Nurse Practitioner Family; Admitting Provider Family Medicine; Emergency Provider Student in an Organized Health Care Education/Training Program; PCP Family Medicine; Visit Provider Family Medicine
DX: I16.1 Hypertensive emergency (principal); G43.009 Migraine without aura, not intractable, without status migrainosus; K59.09 Other constipation; Z11.59 Encounter for screening for other viral diseases; F48.1 Depersonalization-derealization syndrome; R30.0 Dysuria; I10 Essential (primary) hypertension; F41.0 Panic disorder [episodic paroxysmal anxiety]; M54.30 Sciatica, unspecified side; R23.2 Flushing; I48.0 Paroxysmal atrial fibrillation; Z79.899 Other long term (current) drug therapy
CPT/HCPCS: 36415; 70496; 80053; 85027; 93005; 96365; 96375; 99217; 99219; 99291; U0003; 71045; 82088; 83735; 84244; 84439; 84443; 84484; 85025; 85610; 85730; 93010; G0378; J0131; J0780; J1200; J2930; J3490

== ENCOUNTER 2020-03-18 11:17 | Outpatient (REF) | payer BC, SELFPAY ==
[2020-03-18 19:34] LABS: TSH (W/Ref FT4) 3.22 uIU/mL (0.36-3.74)
== END 2020-03-18 11:37 ==
LOC: LBN 11:17
PROVIDERS: PCP Family Medicine; Visit Provider Family Medicine
DX: R79.89 Other specified abnormal findings of blood chemistry (principal); I10 Essential (primary) hypertension
CPT/HCPCS: 84443

== ENCOUNTER 2020-05-19 06:10 | Day surgery (SDC) | payer BC, SELFPAY ==
[2020-05-19 06:26] VITALS: BP 143/84; PULSE 63; RESP 18; TEMP 36.5; O2SAT 99
[2020-05-19] MEDS: Lactated Ringers 1,000 ML 80 ML IV (06:47)
--- NOTE | 2020-05-19 07:33 | HPE_ITS ---
Date of service: 05/19/20 Time of Service: 07:34 Assessment and Plan Assessment and plan (1) Screening for colon cancer: Status: Acute Assessment and plan: Informed consent is obtained for the procedural (explained in simple layman's terms that the pt and/or family could understand) explaining risks vs benefits and alternatives to the procedure and consequences if we do not do the procedure and need/rational for the procedure. Risks include but are not limited to: bleeding, infection, perforation of esophagus, stomach, colon, small intestines, bronchus or trachea, or PTX. This would necessitate emergency surgery to repair the damage w/ possible ostomy; and other associated complications w/ the required surgery. Also complications of anesthesia including aspiration, PR/CVA/. History of Present Illness Consults Consult date: 05/19/20 Narrative: Patient is here today for routine screening colonoscopy. Her blood pressures under better control. She notes that her bowels are better she follows a healthy diet and avoids any fried foods. The pt understands that they need to do a bowel prep and the importance of hydration during this. The patient understands there is a theoretical risk of renal failure. For healthy patients we use Gatorade/Miralax Prep. For anyone with renal concerns- GoLytely will be used. Plavix and coumadin will need to be held except in unusual circumstances. Patients in A. Fib do not need to be bridged with Lovenox or on CVA prophylaxis. A baby ASA can be continued but full dose ASA needs to be stopped for 10 days prior to the procedure. A complete H & P is required within 30 days of the procedure. MAC is used for the colonoscopy. Colonoscopy does not require antibiotics prophylaxis. Risks: Informed consent is obtained for the procedural (explained in simple layman's terms that the pt and/or family could understand) explaining risks vs benefits and alternatives to the procedure and consequences if we do not do the procedure and need/rational for the procedure. Risks include but are not limited to: bleeding, infection, perforation of colon. This would necessitate emergency surgery to repair the damage w/ possible ostomy; and other associated complications w/ the required surgery. Also complications of anesthesia including aspiration, PR/CVA/. I discussed with the patient would they could expect during the procedure, post procedure and recovery time and risks. The patient understands that they need to have a ride home after the procedure. The patient was given all this information in writing and expressed understanding. Review of Systems All systems reviewed & are unremarkable except as noted in HPI and below PFSH Medical History Anxiety Breast calcifications on mammogram Cervico-occipital neuralgia Chronic constipation Cyst of ovary Cystitis Depersonalization-derealization syndrome Disorder of shoulder Dysuria Essential hypertension Flushing Ganglion cyst of dorsum of left wrist Hot flashes due to menopause HTN (hypertension) IBS (irritable bowel syndrome) Kidney stone Migraine without aura Onychomycosis Panic disorder Paroxysmal atrial fibrillation Recurrent cold sores Sciatica Screening for colon cancer Surgical History H/O bladder repair surgery (~10/20/15) Tension Free Vaginal Tape Procedure: ARUNA H/O lithotripsy H/O sinus surgery S/P arthroscopy of left shoulder (~2012) S/P arthroscopy of shoulder w/SAD & Ant.Acromioplasty S/P foot surgery, right bone spur S/P hysterectomy (~05/21/09) S/P tubal ligation (~09/05/93) Family History Father Aneurysm Heart disease Mother No problems noted. 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 Pets and animals: Yes Pets and animals: dog(s) What is your relationship status?: Panel score (0-1 are the most socially isolated patients): 1 What type of physical activity do you participate in: regular exercise Frequency: 3-4 times per week Seatbelt use: always Drive intox or ride w/intox public transit trolley driver: No Do you feel safe at home: Yes Do you feel safe in your relationship?: Yes Female Reproductive History Menstrual Menopause type: surgical History History 2 Para 2 Hx # Term Pregnancies Multiple births Hx # Pregnancies Ectopic pregnancies AB induced Hx Number of Living Children AB spontaneous Meds Home Medications and Allergies Home Medications Medication Instructions Recorded Confirmed Type bisacodyl 5 mg tablet,delayed 5 mg PO ONCE #4 tab 02/22/20 05/19/20 Rx release multivitamin 1 tab PO DAILY 02/22/20 05/19/20 History polyethylene glycol 3350 17 238 g PO ONCE #238 gm 02/22/20 05/19/20 Rx gram/dose oral powder losartan 50 mg tablet 50 mg PO DAILY #90 tab 04/01/20 05/19/20 Rx ibuprofen 800 mg tablet 800 mg PO Q8H PRN #90 tab 04/21/20 05/19/20 Rx rizatriptan 10 mg tablet 10 mg PO ONCE #15 tab-cap 04/21/20 05/19/20 Rx sumatriptan succinate 6 mg/0.5 mL 6 mg SUBCUT ONCE PRN #1 ml 04/21/20 05/19/20 Rx subcutaneous pen injector valacyclovir 1 gram tablet 1,000 mg PO BID #30 tab 04/21/20 05/19/20 Rx amlodipine 5 mg tablet 5 mg PO BID #90 tab 05/02/20 05/19/20 Rx nvqigebfhs-egkhjiuzzlupf-xjjcycmy 1 cap PO Q8H PRN #30 cap 05/02/20 05/19/20 Rx 50 mg-300 mg-40 mg capsule cetirizine 10 mg tablet 10 mg PO DAILY PRN #90 tab 05/02/20 05/19/20 Rx propranolol 80 mg tablet 80 mg PO HS #180 tab 05/02/20 05/19/20 Rx Allergies Allergy/AdvReac Type Severity Reaction Status Date / Time Sulfa (Sulfonamide Allergy Severe THROAT Verified 05/16/20 07:41 Antibiotics) CLOSES OFF Exam Const General: cooperative, healthy appearing, comfortable, no acute distress, well developed and well groomed Nutritional Appearance: average body habitus and well nourished Orientation: alert, awake and oriented x3 HENMT Head: normal to inspection, normocephalic and atraumatic Ears: hearing grossly normal bilaterally and external ears normal General nose exam: external nose normal Face and sinus: normal facial exam and sinuses nontender Mouth: oral mucosae normal, lip normal, tongue normal and moist mucous membranes Teeth and gingiva: dentition normal Eyes General: appearance normal, both eyes and all related structures Conjunctivae: conjunctivae normal Sclera: sclerae normal Pupils: PERRL Neck Neck: normal visual inspection and full ROM Chest Chest: normal inspection of the chest Resp Effort & Inspection: normal respiratory effort, able to speak in complete sentences, no cough, no nasal flaring, not tachypneic and no use of accessory muscles Auscultation: clear to auscultation bilaterally, no rales, no rhonchi and no wheezes Cardio Jugular venous pressure: no JVD Rate: regular rate Rhythm: regular rhythm GI Inspection: normal to inspection, no edema and non-distended Palpation: soft, no masses, nontender and No ascites Auscultation: normal bowel sounds Skin General skin exam: no rashes or lesions noted Trauma: no lacerations or abrasions Neuro General: patient alert, patient oriented x3, oriented, gait normal, moves all extremities, no focal motor deficits and CN's II-XI intact bilaterally Cognition: normal cognition Speech: speech normal Gait: normal gait Motor: muscle tone normal throughout Extrem General: normal to inspection, full ROM and no clubbing, cyanosis or edema Psych Appearance: grossly normal and well kempt Mental Status: mental status grossly normal Speech and Movement: speech and movement normal Affect: normal affect Results Last Vital Signs Temp 36.5 C 05/19/20 06:26 Pulse 63 05/19/20 06:26 Resp 18 05/19/20 06:26 BP 143/84 H 05/19/20 06:26 Pulse Ox 99 05/19/20 06:26 COVID-19 Screening Have you,or household,traveled outside NH in last 14 days?: No Had IN PERSON contact w/suspected or confirmed C-19 person: No
--- NOTE | 2020-05-19 08:05 | BOWEL_PTH ---
PATIENT: Christelle Nunez LOC: [facility] U#:[id number] AGE/SX: 49/F ROOM: RE05/19/[address]: Rossi Cummings : 1970 BED: DIS: 05/19/2020 SPEC #: [id number] RECD: 05/19/20 12:33 STATUS: ALEXANDRU REQ #: [id number] GAYATRI: 05/19/20 08:[address]: Rossi Cummings DEPT: Surgical Specimen RECD BY: Shea Travis ENTERED: 05/19/20 12:34 SP TYPE: Bowel OTHR DR: John Sandhu DO Tissues: 1 - BIOPSY BOWEL Procedures: GROSS AND MICRO LEVEL 4 Comments: [id number]
--- NOTE | 2020-05-19 08:24 | W.COLOREPORT ---
Date of service: 05/19/20 Time of Service: 08:24 Colonoscopy Report Date of procedure: 05/19/20 Pre-op diagnosis general: crc screen Post-op diagnosis procedure note: other (Diverticuli and polyps) Procedure: Colonoscopy and polypectomy with cold forcep Surgeon: Rossi Cummings Anesthesia proc note operative: GETA and MAC Estimated blood loss (mL): 301 Pathology: other Complications: None Prep: Miralax/Dulcolax Retraction Time: 10 mins Procedure Description: After informed consent was obtained the patient was taken to the procedure room and placed in a left decubitous position. Monitors were applied and a time out was done. The patients name, date of , procedure, allergies to medications and metal in their body was reviewed. The patient was then sedated. Once sedated and comfortable a rectal exam was done. External exam was normal. Internal exam revealed a normal sphincter tone and no palpable masses. The scope was then introduced and retrofelexed. no internal hemorrhoids were identified. The scope was then advanced to the cecum w/out difficulty. The TI and appendiceal orifice were identified. The prep was good. The scope was then slowly retracted over 10 minutes back into the rectum. Polyps were removed at 50 cm. She has a flat polyp. This was removed with a cold forcep. All specimen is retrieved and no bleeding is noted. She also has a few small scattered diverticuli in the sigmoid colon. There is no active bleeding or infection.. The scope was removed and the patient was woken up and taken back to Same day surgery in stable condition. The patient tolerated the procedure well and there were no immediate complications. Follow up: The patient should follow up in 5 years- path pd unless they develop changes in bowel habits or other new gastrointestinal complaints.
--- NOTE | 2020-05-19 08:27 | PDOC.DSDIS_ITS ---
Discharge Plan Disposition Patient Disposition: HOME Condition: Good Discharge Details Reason For Visit: colon scope Attending Provider: Rossi Cummings Primary Care Provider: John Sandhu Home Meds and New Rx's Prescriptions: Continued amlodipine 5 mg tablet 5 mg PO BID Qty: 90 RF: 3 propranolol 80 mg tablet 80 mg PO HS Qty: 180 RF: 3 uydvmeayum-nefqqcswgxmrj-xfts [Fioricet] 50-300-40 mg capsule 1 cap PO Q8H PRN (Reason: pain) Qty: 30 RF: 3 cetirizine 10 mg tablet 10 mg PO DAILY PRN (Reason: allergy symptoms) Qty: 90 RF: 3 multivitamin Tablet 1 tab PO DAILY RF: 0 losartan 50 mg tablet 50 mg PO DAILY Qty: 90 RF: 3 valacyclovir 1 gram tablet 1,000 mg PO BID Qty: 30 RF: 3 ibuprofen 800 mg tablet 800 mg PO Q8H PRN (Reason: pain/headaches) Qty: 90 RF: 2 rizatriptan [Maxalt] 10 mg tablet 10 mg PO ONCE Qty: 15 RF: 3 sumatriptan succinate [Imitrex STATdose Pen] 6 mg/0.5 mL pen injector 6 mg subcut ONCE PRN (Reason: migraine headache) Qty: 1 RF: 6 Discontinued polyethylene glycol 3350 17 gram/dose powder 238 g PO ONCE Qty: 238 RF: 0 bisacodyl [Dulcolax (bisacodyl)] 5 mg tablet,delayed release (DR/EC) 5 mg PO ONCE Qty: 4 RF: 0 Discharge Instructions Additional Instructions: Findings:Sm polyp and diverticula -Small light meals x24 hours -No lifting over 20 pounds or strenuous activity x24 hours Follow up: will send a letter w/ results in 2-3 wks and when to repeat the scope Please call if you develop: fevers >101.5 Nausea or Vomiting Abdominal pain that is not transient DAY SURGERY UNIT POST COLONOSCOPY INSTRUCTIONS 1. Because there will be medication in your system for the next 24 hours, you may feel a little sleepy. Your coordination will be affected. Therefore: a. Do not drive or operate dangerous equipment for 24 hours. b. Do not drink alcohol beverages for 24 hours (not even beer). c. Plan to go home and rest for the day. 2. Generally there are no restrictions on your activity after a day or so has gone by, but you may feel a bit fatigued for a few days. 3 After you arrive home you may have a light meal and return to a normal diet as you can tolerate it without feeling sick to your stomach. 4. After surgery, you may feel pain or discomfort. This should be only transient, but if it persists please contact your doctor. 5. If there are any questions regarding the findings of your procedure, please feel free to contact your doctor. 6. If you are unable to contact your doctor with a problem, contact the hospital at [phone]. 7. Continue all your regular medications unless directed otherwise. I understand the above instructions and have no questions. Signature of Patient or Responsible Adult Escort Date/Time Name of Responsible Adult Escort Signature of Nurse Date/Time High Fiber Diet What is Dietary Fiber? All fiber comes from plants, bushes, lisa or trees. Of course, the ones that we eat provide us with fruits, vegetables and grains. There are many different types of fiber but the three that are most important to the health of the body are: Insoluble Fiber This fiber does not dissolve in water, nor is it fermented by the bacteria residing in the colon. Rather, it retains water and in so doing, helps to promote a larger, bulkier and more regular bowel activity. This, in turn, may be important in preventing disorder such as diverticulosis and hemorrhoids, and in sweeping out certain toxins and cancer causing carcinogens. Sources of insoluble fiber are: ? whole grain wheat and other whole grains ? corn bran, including popcorn, unflavored and unsweetened ? nuts and seeds ? potatoes and the skins from most fruits from trees such as apples, bananas and avocados ? many green vegetables such as green beans, zucchini, celery and cauliflower ? some fruit plants such as tomatoes and kiwi Soluble Fiber These fibers are fermented or used by the colon bacteria as a food source or nourishment. When these good bacteria grow and thrive, many health benefits occur in both the colon and the body. Soluble fiber is present in some degree in most edible plant foods, but the ones with the most soluble fiber include: ? legumes such as peas and most beans, including soybeans ? oats, rye and barley ? many fruits such as berries, plums, apples bananas and pears ? certain vegetables such as broccoli and carrots ? most root vegetables ? psyllium husk supplement products Prebiotic Soluble Fiber These are relatively newly discovered soluble plant fibers. The technical name for this fiber is inulin or fructan. When these soluble fibers are fermented by the good colon bacteria, some further significant health benefits have been shown to occur by research in many medical centers. These soluble prebiotic fibers occur in significant amounts in: ? asparagus ? yams ? onions ? garlic ? bananas ? leeks ? agave ? chicory and other root vegetables such as Qulin artichokes ? wheat, rye and barley (smaller amounts) Benefits of a High Fiber Diet The health benefits of a high fiber diet, consumed on a regular basis and reaching recommended amounts (below), are now fairly well-defined. There are some additional benefits in the early research stage with the prebiotic soluble fibers. What is now known regarding a high fiber diet include: Bowel Regularity A high fiber diet promotes regularity with a softer, bulkier and regular stool pattern. This decreases the chance of hemorrhoids, diverticulosis and perhaps colon cancer. Cholesterol and Reduced Triglycerides The soluble fibers are the ones that will reduce cholesterol levels when used on a regular basis. Psyllium husk and prebiotic soluble fiber will also reduce cholesterol. They may also reduce the incidence of coronary heart disease. Oats, flax seeds and legumes or beans are the recommended fibers. Colon Polyps and Cancer It is still not certain if a high fiber diet helps prevent colon cancer. Considerable research suggests that this may occur. Certainly it makes sense to increase regularity and so speed the movement of cancer causing carcinogens through the bowel. In addition, reducing a heavy meat diet reduces the bile flow from the liver in a favorable way. This, too, reduces the amount of carcinogens that reach and are manufactured in the colon. Finally, a high fiber diet, i ncluding prebiotic soluble fiber, increases the integrity and health of the wall of the colon. The risk of cancer may be reduced. Colon Wall Integrity A high fiber diet changes the bacterial makeup of the colon toward a more favorable balance. For instance, it is known that those people with obesity, diabetes type 2 and inflammatory bowel disease have a predominance of bad bacteria in the colon. This, in turn, may render the bowel wall weak and allow bacteria and, indeed, even toxins to seep through. A high fiber diet with a modest reduction in animal and meat products may return the bacterial makeup to a more positive balance. This, in particular, has been seen when the soluble fiber prebiotics are added to the diet. Blood Sugar Soluble fiber such as in legumes (beans), oats and in prebiotic fibers slows the absorption of blood sugar and so helps regulate the sugar in the blood. Insoluble fiber on a regular basis is associated with reduced risk of type 2 diabetes. Weight Loss High fiber diets are more filling and give a sense of fullness sooner than an animal and meat based diet does. In addition, the soluble prebiotic fibers have been shown to turn off the hunger hormones produced in the wall of the gut and to increase the hormones that give a sense of fullness. Those hormones are made in the wall of the gut. New medical research has shown that the bacterial makeup in the colon in overweight people is abnormal to the extent that they manufacture and absorb almost twice the number of calories through the colon wall as do normals. Prebiotic fibers (below) will help change this hormonal balancein a favorable way. Bacteria and the Function of the Colon The colon finishes the digestive process. Hopefully, the waste products move through in a nice regular manner. Insoluble fibers help this process by retaining water and so producing a bulkier, softer stool, which is easy to pass. The additional role of the colon is to provide a home for an enormous number of micro-organisms, mostly bacteria. Recent research has shown that there are over 1,000 species of bacteria with a total bacterial count ten times the number of cells in the body. These bacteria play a major role in keeping the colon wall itself healthy. In addition, these good bacteria produce a very strong immune system for the body. They significantly increase calcium absorption and bone density. They provide other documented benefits. It is the soluble fibers in the diet that are so effective in stimulating the growth of good colon bacteria. How Much is Enough? The amount of fiber in food is measured in grams. National nutritional authorities recommend the following amounts of dietary fiber daily. Under Age 50 Over Age 50 Men 38 grams 30 grams Women 25 grams 21 grams For a week or so, it is best to tally the amount of fiber you are consuming. Boxed and packaged foods will have the amount of fiber per serving on the nutrition label. Which Fibers and Which Foods are Best? As noted, healthy fiber is only found in plants. The three major categories are whole grains, fruits and vegetables. Whole Grains Wheat, oats, barley, wild or brown rice, amaranth, buckwheat, bulgur, corn, millet, quinoa, rye, sorghum, teff and triticals. By far, wheat, oats and wild or brown rice are most common. Always buy whole grain products. White bread, baked goods and rolls almost always are made from wheat flour. Wheat flour is white because most of the fiber, vitamins and other nutrients have been removed. Try not buy enriched grains. What this means is that simple white flour has had vitamins added to it by the counter server. The word, enriched, implies a good and healthy product. On the contrary, enriched means that most of the fiber has been removed and a few vitamins added. Fruits Fruits come from trees such as apple and pear or from bushes or lisa. You should eat a wide variety of fruits, preferably with every meal. In many cases, the skin of a fruit such as apple will contain much of the insoluble fiber while the pulp contains most of the soluble fiber. To the extent possible, buy organic fruits as these will have little or no pesticides. Always wash fruit. Vegetables Eat a wide variety of vegetables. They should be a mainstay of lunch and dinners. Frozen vegetables retain as much nutrition and fiber as fresh vegetables. As with fruit, try to buy organic to reduce any residual pesticide ingestion. Wash fresh vegetables thoroughly. Cruciferous vegetables such as broccoli, Seth sprouts and cauliflower contain certain chemicals such as sulforaphane. This substance has very strong anti-cancer properties and should be eaten frequently. Legumes, Beans, Peas and Soybeans These vegetables have plenty of soluble fiber and should be part of a varied vegetable intake. Beans, in particular, contain a certain type of fiber that may lead to harmless gas or bloating. Nuts and Seeds These are rich sources of fiber and are a good substitute for sweets such as candies and baked sweet goods. While nuts and seeds are rich in fiber, they also contain vegetable fat and so can and do add calories. Read the Labels As noted, fresh and frozen foods are usually better. They have good nutrition and few, if any, chemicals added to them. When buying packaged foods and, in particular grains, look for three things: ? The first word on the label should be whole, such as whole wheat or whole grain. ? Check out the calories and the amount of fiber in a serving. ? How many and what other additives or chemicals are added. Fewer is always better. Do you know what each additive does? Some are added not for the benefit of the farm contractor buyer but rather for manufacturers. These could and do include sugar, artificial flavor, chemicals to prevent oxidation and spoilage, emulsifiers to blend the product. You have to be a sales operations analyst. Fiber Facts, Nuggets and Pearls ? For breakfast you can easily get the day started well by using a high fiber, whole grain cereal. Check the labels. Add fruit such as blueberries and bananas. If you are an egg eater, use whole wheat or grain toast. Adding wheat germ gives you a good fiber kick. ? Always use whole grain or wheat with rolls and sandwiches. Does your fast food store not have them? Perhaps you look elsewhere. Eating an occasional black vanegas or veggie burger provides variety. ? Snacks should consist of fruit and/or nuts. While nuts are loaded with fiber, they are an energy rich food, meaning they have a lot of calories in a small packet. ? Fruit juices should contain pulp. Clear juices such as clear orange, pear or apple juice contain little fiber and have a lot of fructose. Prune juice is usually high in fiber. ? Homemade soups ? adding fresh or frozen vegetables to a chicken or vegetable stock is a good way to start homemade soup. ? Salads ? adding cooked and then chilled vegetables provide great flavoring to almost any salad. Remember, a anguiano salad has lots of cooked corn in it. Small slices of apples or oranges and nuts such as chopped walnuts or sliced almonds always adds taste, variety and fiber to almost any salad. ? Fruit ? Try to eat fruit of some type with almost every meal. ? Rethink how you place the various foods on your dinner plate. Reducing the portions of the meat or animal food portion to the side with equal or more portions of vegetables, legumes and fruits portion always allows for more fiber. There was never anything magic about making the meat or animal food portion the main part of the dinner plate. Eating from smaller plates can, over time, trick your mind and termite treater helper habit of using a dinner plate. Again, there is nothing magic in an 11, 12, or 13 inch dinner plate. Fiber Supplements There are a variety of fiber supplements available on the food or pharmacy shelves. Psyllium This soluble plant fiber has been used in [place] for over 2,000 years. It is a soluble fiber with mucilage in it. This acts to retain a lot of water and also is fermented by colon bacteria. When 7 grams a day are used, it does lower cholesterol. Metamucil in various forms is psyllium. Methyl Cellulose All the cellulose products come from finely ground wood chips which are then treated in a variety of ways such as boiling in acids. Methyl cellulose is an insoluble fiber which does dissolve in water. It is also an emulsifier, meaning it blends oils and water. Citrucel is methyl cellulose (MC). MC may not be appropriate for Crohn?s disease or ulcerative colitis as several medical studies have shown that certain emulsifiers dissolve the mucous lining of the colon in animals prone to Crohn?s disease. This then allows bacteria to invade the underlying tissue. Inulin Inulin is a soluble prebiotic fiber found in many foods and which are fermented mostly in the left side of the colon. It is available in a supplement as generic inulin and in Fiber Choice. Oligofructose FOS These are also prebiotic fibers. They are fermented very quickly in the right side of the colon. Prebiotin This product is a combination of oligofructose, which feeds the bacteria in the right side of the colon and inulin, which does the same in the left side of the colon. There seems to be a benefit for this particular formula based on medical research. Prebiotic Soluble Fiber These may be the healthiest of all the soluble fibers. They grow in many plants and have had a great deal of research done on them in the last 10-15 years. These fibers are found in asparagus, yams and other root vegetables such as chicory, garlic, onion, leeks and in smaller amounts in wheat. This research has shown the following: ? Increase in good and decrease in bad colon bacteria ? Increase calcium absorption and enhanced bone mass ? Enhanced immune system ? Appetite and weight control by changing the hormone appetite signals to the brain ? May decrease colon cancer incidence ? Reduce or correct a leaky colon Eating a wide variety of plant food up to the recommended amount will likely give you enough prebiotic fiber. Supplements such as Prebiotin can be added to the diet. Short Chain Fatty Acids (SCFA) Some rather remarkable research findings have shown that one of the benefits of ingesting a lot of soluble fiber, in particular the prebiotic ones, results in larger amounts of SCFAs in the colon. These SCFAs are made by the good bacteria in the colon such as Bifidobacter and Lactobacillus. These small molecules have been shown to do the following: ? Enhance the health and integrity of the colon wall ? Provide nourishment for the cells that actually line the colon ? Increases the acidity of the colon which is a very real health benefit ? Stabilize blood sugar for diabetics ? Reduce blood cholesterol and triglyceride ? Significantly enhance immunity ? May be a benefit for Crohn?s disease and ulcerative colitis patients Fiber and Gas Everyone has intestinal gas and that is a good thing. It means that bacteria, hopefully the good ones, are thriving. The normal amount of flatus passed each day depends on sex and what is eaten. The normal number of flatus is 10-20 times a day. When the bacteria that make intestinal gases are growing, it also means that other good bacteria are using the same fibers to grow and produce multiple health benefits, including the production of healthy short-chain fatty acids. These substances are produced quietly in the colon and produce many health-related outcomes. Soluble fiber should always be used in a gradual manner. If too much is consumed at any one time, then excess, but harmless, intestinal gas can occur. People with irritable bowel syndrome are particularly prone to bloating and mild cramping. In this instance, soluble fiber in the diet or supplement should be used in small doses and increased gradually. Finally, prebiotic fibers tend to cause the production of short-chain fatty acids which acidify the colon. This, in turn, reduces or stops the growth of bacteria that make the smelly hydrogen sulfide gases that produce noxious flatus. People who consume many vegetables with prebiotics or take a prebiotic fiber supplement often have non-odoriferous flatus. Fiber and Irritable Bowel Syndrome Irritable bowel syndrome (IBS) is one of the most common disorders of the lower digestive tract. The symptoms of IBS can be quite varied. They can be a mix of several symptoms such as constipation, diarrhea, crampy abdominal discomfort, bloating and gas. An attack of IBS can be triggered by emotional tension and anxiety, poor dietary habits and certain medications. It is now known that infections in the intestine can lead to long-term IBS symptoms. Increased amounts of fiber in the diet can help relieve the symptoms of irritable bowel syndrome by producing soft, bulky stools. This helps to normalize the time it takes for the stool to pass through the colon. Recent medical research with newer techniques has shown some surprising and dramatic findings for IBS patients. Specifically, there is a very significant and abnormal shift of bacteria from those that provide health benefits to those bad bacteria that we really do not want in the gut. The technical name for this bad group of ba cteria is called Firmicutes. Along with this abnormal bacterial collection, there is a smoldering low-grade inflammation in the gut wall that may contribute to symptoms. The goal for IBS patients should be to gradually increase the soluble dietary fibers in the diet so as to promote the growth of good bacteria and so suppress the bad ones along with the associated inflammation. IBS patients need to be careful of the amount of soluble fiber they consume. The reason for this is that, while the good colon bacteria thrive on these fibers and produce health benefits, other gas-forming bacteria may generate excessive but harmless gas and subsequent bloating. Thus, soluble plant fibers or a dietary prebiotic supplement should be taken in small initial doses and then gradually increased to tolerance. Fiber and Colon Polyps/Cancer Colon cancer is a major health problem. This disease is most common in Western cultures. It is not seen very often in rural cultures where the diet is mostly plant based. Usually, colon cancer starts out as a colon polyp, a benign mushroom-shaped growth. In time it grows, and in some people it becomes cancerous. Colon cancer is usually always curable if polyps are removed when found or if surgery is performed at an early stage. It is now known that people can inherit the risk of developing colon cancer, but diet is important, too. As noted, there is a very low rate of colon cancer in residents of countries where grains are unprocessed and retain their fiber. It seems that in the [place] world, cancer-containing agents (carcinogens) remain in contact with the colon wall for a longer time and in higher concentrations. So, a large bulky stool may act to dilute these carcinogens by moving them through the bowel more quickly. Less carcinogenic exposure to the colon may mean fewer colon polyps and less cancer. A very current review of the entire world?s literature on the effect of fiber on colon polyps and cancer prevention has shown rather clearly that for every 10 grams of fiber added to the diet, there is a 10% reduction in incidence of colon cancer. So the recommended 30 gram fiber diet would result in a 30% less chance of getting these tumors. There are also substances produced in the colon by the good bacteria that seem to retard certain pre-cancer factors from developing. They are called short- chain fatty acids (SCFA). See above for description of SCFAs. A high fiber diet increases these substances. So, the combination of dietary fiber and the production of short-chain fatty acids have a clear health benefit. Fiber and Diverticulosis Prolonged, vigorous contraction of the colon over a long period of time may result in diverticulosis. This increased pressure causes small and, eventually, larger ballooning pockets to form. These pockets by themselves cause no problem. However, sometimes they become infected (diverticulitis) or even break open (perforate) causing infection or inflammation within the abdomen (periton itis). A high fiber diet increases the bulk in the stool and thereby reduces the pressure within the colon. By so doing, the formation of pockets may be reduced or possibly even stopped. In the past, many physicians were fearful that seeds as in tomatoes, nuts or berries were harmful and could get inside these pockets and rattle around, causing damage. We now know that this has never been the case and that these foods contain lots of fiber and are actually beneficial for diverticulosis patients. Certain bulking agents such as psyllium are traditional types of bulk producing supplements. Psyllium is a soluble fiber. Combining it with insoluble fiber as in wheat bran or corn bran (no gluten) can enhance this bulking effect even more. A product containing a prebiotic, psyllium and wheat bran is probably a very good combination for bowel regularity. Prebiotin Regularity/Diverticulosis is one such product. Inflammatory Bowel Disease (IBD) Activity:: No lifting over 20 pounds Diet:: Small light meals x24 yuly Discharge Orders Discharge Orders: Discharge Order (Routine); Ordered 05/19/20 Ordered By: Rossi Cummings DS: Diagnosis Discharge Diagnosis (1) Screening for colon cancer: Status: Acute (2) Diverticula of colon: Status: Acute (3) Adenomatous colon polyp: Status: Acute
[2020-05-19 09:00] VITALS: BP 144/87; PULSE 66; RESP 16; TEMP 36.4; O2SAT 99
== END 2020-05-19 09:30 | disposition home or self-care (01) ==
PROVIDERS: PCP Family Medicine; Visit Provider Surgery
PROC: 0DJD8ZZ Inspection of Lower Intestinal Tract, Via Natural or Artificial Opening Endoscopic (ICD-10-PCS; CPT 45378; principal; 2020-05-19 07:30)
DX: Z12.11 Encounter for screening for malignant neoplasm of colon (principal); K63.5 Polyp of colon; I48.91 Unspecified atrial fibrillation; F41.9 Anxiety disorder, unspecified; I10 Essential (primary) hypertension; K57.30 Diverticulosis of large intestine without perforation or abscess without bleeding
CPT/HCPCS: 45380; 88305; NC; J2001; J2704

== ENCOUNTER 2020-07-09 03:05 | Outpatient (CLI) | payer BC, SELFPAY ==
[2020-07-09 10:39] LABS: Calculated LDL 139 mg/dL (<100); Cholesterol 248 mg/dL (<200); HDL Cholesterol 86 mg/dL (40-60); Triglyceride 115 mg/dL (<150)
[2020-07-11 15:27] LABS: Hepatitis C Ab w Rflx HCV PCR Negative (Negative)
== END 2020-07-09 03:25 ==
PROVIDERS: PCP Family Medicine; Visit Provider Family Medicine
DX: I10 Essential (primary) hypertension (principal); Z11.59 Encounter for screening for other viral diseases
CPT/HCPCS: 36415; 80061; 86803

== ENCOUNTER 2020-09-24 03:42 | Outpatient (CLI) | payer BC, SELFPAY ==
[2020-09-25 18:22] LABS: COVID-19 RT-PCR Result NEGATIVE (Negative)
== END 2020-09-24 04:02 ==
PROVIDERS: PCP Family Medicine; Visit Provider Family Medicine
DX: Z20.822 Contact with and (suspected) exposure to COVID-19 (principal)
CPT/HCPCS: U0003

== ENCOUNTER → 2022-05-12 03:37 | Outpatient (CLI) | payer BC, SELFPAY ==
--- NOTE | 2022-05-12 09:28 | DI.MAMMO_ITS ---
Exam(s) MAMMO SCREENING EXAM: MAMMO SCREENING CLINICAL HISTORY: screening TECHNIQUE: Bilateral full field digital CC and MLO mammographic images were obtained with 3D tomosyn thesis and utilizing computer aided detection (CAD). COMPARISON: Available for comparison. FINDINGS: Masses/Architectural Distortion: There is a question of asymmetric density in the upper central left breast on the MLO view. This area should be further evaluated. Microcalcifications: No suspicious pleomorphic-type are seen. Skin Thickening/Nipple Retraction: None. IMPRESSION: 1. Question of an asymmetric density in the upper central left breast on the MLO view. 2. This area should be further evaluated with a spot compression view. Ultrasound may be indicated a t that time. BI-RADS Category 0 - Assessment Incomplete: Need additional imaging evaluation Breast Density - Category C - Heterogeneously dense Breast density category C or D implies that the patient has dense breast tissue. Dense breast tissue is very common and is not abnormal but dense breast tissue can make it harder to find cancer on a ma mmogram. Also, dense breast tissue may increase their breast cancer risk. This information about the result of the mammogram report was provided to the patient to raise their awareness. Use this report when you speak with the patient about their risks for breast cancer, which includes their family hist ory. At that time, you may recommend for more screening tests (Ultrasound or MRI) as they might be us eful based on their risk. A negative radiographic report should not delay biopsy if a dominant or clinically suspicious mass is present. Up to ten percent of cancers are not identified on mammography. A negative report may reinforce clinical impression. Adenosis and dense breasts may obscure an underlying neoplasm. False positive reports average 6 to 10%. Patient will receive a letter notifying them of these results.
== END ==
PROVIDERS: PCP Family Medicine; Visit Provider Nurse Practitioner Family
DX: Z12.31 Encounter for screening mammogram for malignant neoplasm of breast (principal); R92.8 Other abnormal and inconclusive findings on diagnostic imaging of breast
CPT/HCPCS: 77063; 77067

== ENCOUNTER 2022-05-12 08:33 | Outpatient (CLI) | payer BC, SELFPAY ==
[2022-05-12 10:13] LABS: ALT 65 U/L (14-59); AST 29 U/L (15-37); Albumin 4.1 g/dL (3.4-5.0); Alkaline Phosphatase 69 U/L (46-116); BUN 16 mg/dL (7-18); Bilirubin, Total 0.5 mg/dL (0.2-1.0); CREATININE 0.9 mg/dL (0.55-1.02); Calculated LDL 151 mg/dL (<100); Chloride 103 mmol/L (98-107); Cholesterol 256 mg/dL (<200); Estimated GFR 76.92 (mL/min/1.73m2); Glucose 112 mg/dL (74-106); HDL Cholesterol 94 mg/dL (40-60); Potassium 3.9 mmol/L (3.5-5.1); Sodium 141 mmol/L (136-145); Total Protein 7.7 g/dL (6.4-8.2); Triglyceride 57 mg/dL (<150)
== END 2022-05-12 08:34 | disposition home or self-care (01) ==
LOC: LBO 08:34
PROVIDERS: PCP Family Medicine; Visit Provider Family Medicine
DX: I10 Essential (primary) hypertension (principal)
CPT/HCPCS: 36415; 80053; 80061

== ENCOUNTER → 2022-05-21 00:24 | Outpatient (CLI) | payer BC, SELFPAY ==
--- NOTE | 2022-05-21 | DI.US_ITS ---
Exam(s) MG MAMMO SCREEN CALL BACK UNI US BREAST LT COMPLETE EXAM: MG MAMMO SCREEN CALL BACK UNI -LEFT AND COMPLETE LEFT BREAST ULTRASOUND CLINICAL HISTORY: F/U ABNL MAMMO, ASYMMETRIC DENSITY UPPER CENTRAL LT BREAST. TECHNIQUE: Unilateral spot mammographic images obtained with 3D tomosynthesisand utilizing computer aided detection (CAD). . Complete LEFT breast Ultrasound was also performed, including all 4 quadrants, the retroareolar regio n, and the ipsilateral axilla. COMPARISON: Prior mammograms were reviewed. This additional imaging was performed due to findings described on the recent screening mammogram of 05/12/2022. FINDINGS: DIAGNOSTIC LEFT BREAST MAMMOGRAM: Additional mammographic views performed todayrender this area less concerning. COMPLETE LEFT BREAST ULTRASOUND: Ultrasound performed today reveals no significant focal findings in the area of concern on the mammog yan. However, at the time 2 o'clock position there is a 4 x 3 millimeter benign-appearing wider than taller finding which has appearance of a probable hemorrhagic microcyst. It exhibits increased thro ugh transmission. No worrisome decreased through transmission.. No other focal findings in all 4 quadrants nor in the retroareolar region. Scanning of the left axil la is negative for adenopathy. IMPRESSION: 1. No mammographic evidence of malignancy in the left breast. 2. Left breast ultrasound reveals a probable benign hemorrhagic microcyst at the 2 o'clock position m easuring 4 x 3 millimeters. Appropriate follow-up , as discussed by myself with the patient today, is repeat left breast ultrasou nd in 6 months. The patient was informed of these findings and recommendations prior to leaving the department today. BI-RADS Category 3 - 6 month - Probably Benign Finding: Recommend follow-up mammography in 6 months Breast Density - Category C - Heterogeneously dense Breast density Category C or D implies that the patient has dense breast tissue. Dense breast tissue can make it harder to find cancer on a mammogram. Dense breast tissue is also associated with an incr eased risk of breast cancer. This information about the result of the mammogram report was provided to the patient to raise their awareness. Use this report when you speak with the patient about their risks for breast cancer, which includes their family history. At that time, you may recommend additional screening tests (Ultrasoun d or MRI) as these tests may add significant information. A negative radiographic report should not delay biopsy if a dominant or clinically suspicious mass is present. Up to ten percent of cancers are not identified on mammography. A negative report may reinforce clinical impression. Adenosis and dense breasts may obscure an underlying neoplasm. False positive reports average 6 to 10%. Patient will receive a letter notifying them of these results.
== END ==
PROVIDERS: PCP Family Medicine; Visit Provider Nurse Practitioner Family
DX: Z12.31 Encounter for screening mammogram for malignant neoplasm of breast (principal); R92.8 Other abnormal and inconclusive findings on diagnostic imaging of breast
CPT/HCPCS: 76642; 77063; 77067

== ENCOUNTER 2022-09-09 12:00 | Outpatient (REF) | payer BC, SELFPAY | END 2022-09-09 12:01 | disposition home or self-care (01) | LOC: LBN 12:00 | PROVIDERS: PCP Family Medicine; Visit Provider Advanced Practice Midwife | DX: R30.0 Dysuria (principal) | CPT/HCPCS: 87077; 87086; 87186 ==

== ENCOUNTER 2023-01-17 11:29 | Outpatient (CLI) | payer BC, SELFPAY ==
--- NOTE | 2023-01-17 10:45 | DI.RAD_ITS ---
Exam(s) XR HEEL LT OS CALCIS EXAM: XR HEEL LT OS CALCIS CLINICAL HISTORY: pain. TECHNIQUE: 2D digital imaging was performed. COMPARISON: No exams were available for comparison FINDINGS: BONES: No acute fracture is present. No bony destructive lesion is seen. Prominent heel spurs. JOINTS: No dislocation present. SOFT TISSUE: Normal. IMPRESSION: Prominent heel spurs. DATA REPOSITORY: RADIATION DOSE DELIVERED:
== END 2023-01-17 11:30 | disposition home or self-care (01) ==
LOC: DIORS 11:30
PROVIDERS: PCP Family Medicine; Referring Provider Family Medicine; Visit Provider Physician Assistant
DX: M77.32 Calcaneal spur, left foot
CPT/HCPCS: 73650

== ENCOUNTER 2023-02-09 11:43 | Day surgery (SDC) | payer BC, SELFPAY ==
[2023-02-09] VITALS (10 sets, daily range): BP systolic 140–170; BP diastolic 77–92; PULSE 64–70; RESP 15–20; TEMP 36.5–36.7; O2SAT 95–100; BMI 31.6
[2023-02-09] MEDS: Celecoxib 200 MG CAP 400 MG PO (12:10)
[2023-02-09] MEDS: Acetaminophen 500 MG TAB 1000 MG PO (12:11)
[2023-02-09] MEDS: Gabapentin 300 MG CAP PO (12:11)
[2023-02-09] MEDS: Lactated Ringers 1,000 ML 80 ML IV (12:19)
--- NOTE | 2023-02-09 13:38 | ANES.PREOP_ITS ---
General Info Date of Service Date Performed: 02/09/23 Height: 5 ft 7 in Weight: 91.8 kg Body Mass Index (BMI): 31.6 Surgical Procedure: Operation Date: 02/09/23 14:10 Proposed Procedure Side Surgeon p Ankle Achilles Tendon Debridement/ Stephanie Resection Left John Shell MD Meds Allergies and Home Medications Allergies Allergy/AdvReac Type Severity Reaction Status Date / Time Sulfa (Sulfonamide Allergy Severe THROAT Verified 02/09/23 12:05 Antibiotics) CLOSES OFF Home Medication Medication Instructions Recorded multivitamin 1 tab PO DAILY 02/22/20 sumatriptan succinate 6 mg/0.5 mL 6 mg (0.5 mL) subcut ONCE PRN 04/21/20 subcutaneous pen injector (Imitrex migraine headache #1 mL STATdose Pen) cetirizine 10 mg tablet 10 mg PO DAILY PRN allergy 05/02/20 symptoms #90 tabs albuterol sulfate 90 mcg/actuation 2 puff inhalation Q6H PRN 06/09/21 aerosol inhaler shortness of breath or wheezing #8.5 grams wfvyovzqnd-rrizmdolsrina-rptghsbu 1 cap PO Q8H PRN pain #30 caps 07/03/21 50 mg-300 mg-40 mg capsule (Fioricet) valacyclovir 1 gram tablet 1,000 mg PO BID #30 tabs 07/03/21 losartan 50 mg tablet 50 mg PO DAILY #90 tabs 04/05/22 amlodipine 5 mg tablet 5 mg PO BID #180 tabs 08/20/22 propranolol 80 mg tablet 80 mg PO HS #180 tabs 08/20/22 estradiol 0.01% (0.1 mg/gram) 1 g vaginal .COMPLEX #42.5 grams 10/05/22 vaginal cream (Estrace) paroxetine HCl 20 mg tablet 20 mg PO DAILY #90 tabs 01/10/23 acetaminophen 500 mg tablet 1,000 mg PO TID #90 tabs 02/09/23 hydrocodone 5 mg-acetaminophen 325 1 tab PO Q6H PRN pain #15 tabs 02/09/23 mg tablet ibuprofen 600 mg tablet 600 mg PO TID PRN #90 tabs 02/09/23 Current Visit Medications: Current Medications Generic Name Dose Route Start Last Admin Trade Name Freq PRN Reason Stop Dose Admin Acetaminophen 1,000 mg 02/09/23 06:00 02/09/23 12:11 Acetaminophen 500 Mg Tab PO 02/09/23 18:00 1,000 mg PREOP SHOAIB Administration Acetaminophen 650 mg 02/09/23 11:51 Acetaminophen 325 Mg Tab PO 03/11/23 11:50 Q4H PRN PRN Hydrocodone Bitart/Acetaminophen 0 tab 02/09/23 11:51 Hydrocodone 5/Acetaminophen 325 Tab PO 03/11/23 11:50 Q3H PRN PRN Pain Celecoxib 400 mg 02/09/23 06:00 02/09/23 12:10 Celecoxib 200 Mg Cap PO 02/09/23 18:00 400 mg PREOP SHOAIB Administration Gabapentin 300 mg 02/09/23 06:00 02/09/23 12:11 Gabapentin 300 Mg Cap PO 02/09/23 18:00 300 mg PREOP SHOAIB Administration Ringer's Solution 1,000 mls @ 80 mls/hr 02/09/23 06:00 02/09/23 12:19 IV 03/10/23 23:59 80 mls/hr INFUSION SHOAIB Administration Cefazolin Sodium/Dextrose 2 gm in 50 mls @ 100 mls/hr 02/09/23 06:00 Ancef Duplex IVPB 02/09/23 16:00 PREOP SHOAIB Tranexamic Acid 1,000 mg/ 60 mls @ 360 mls/hr 02/09/23 06:00 Sodium Chloride IVPB 02/09/23 16:00 PREOP SHOAIB IV Miscellaneous Supplies 1 each 02/09/23 06:00 Iv Access IV 03/10/23 23:59 DIRECTED SHOAIB Sodium Chloride 0 ml 02/09/23 06:00 Normal Saline Flush 10 Ml Syr IV 03/10/23 23:59 PRN PRN Sodium Chloride 0 ml 02/09/23 06:00 Normal Saline 10 Ml Vial IJ 03/10/23 23:59 DIRECTED PRN Sterile Water 0 ml 02/09/23 06:00 Water,Injection,Sterile 10 Ml Vial IJ 03/10/23 23:59 DIRECTED PRN PFSH Active Problems Active Problems: Problem Status Onset Code Migraine without aura G43.009 Essential hypertension I10 Chronic constipation K59.09 Cystitis N30.90 Sciatica M54.30 Panic disorder F41.0 Anxiety F41.9 Deviated nasal septum 05/24/19 J34.2 Chronic sinusitis J32.9 Hallux rigidus of right foot M20.21 Headache R51 HTN (hypertension) I10 IBS (irritable bowel syndrome) K58.9 Ganglion cyst of dorsum of left wrist M67.432 Diverticula of colon K57.30 Adenomatous colon polyp D12.6 CARLOS on CPAP ~08/2020 G47.33, Z99.89 Insomnia, unspecified ~08/2020 G47.00 Hot flash, menopausal N95.1 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 states she no longer has this Recurrent cold sores Screening for colon cancer Surgical History Surgical History Colon polyp, hyperplastic (~05/19/20) 05/19/20 Dr. Bridgett Cummings, repeat colo 10 years H/O bladder repair surgery (~10/20/15) Tension Free Vaginal Tape Procedure: ARUNA H/O lithotripsy H/O sinus surgery History of arthroscopy 12/23/21- bilateral TMJ arthroscopy. [facility]. surgeon Dimitris Bunn DMD; Elizabeth Hernandez DDS S/P arthroscopy of left shoulder (~2012) S/P arthroscopy of shoulder w/SAD & Ant.Acromioplasty S/P foot surgery, right bone spur S/P hysterectomy (~05/21/09) S/P tubal ligation (~09/05/93) Tobacco Smoking/Tobacco Use Status: Former Tobacco Use Passive smoking exposure: No Alcohol Alcohol Intake: current Alcohol intake frequency: 0-2 drinks per day Alcohol type: wine Substance Use Substance use: Never Substance use type: does not use Prental History History 2 Para 2 Hx # Term Pregnancies Multiple births Hx # Pregnancies Ectopic pregnancies AB induced Hx Number of Living Children AB spontaneous Vital Signs and Lab Results Vital Signs Most Recent Vital Signs in EMR: Most Recent Vital Signs Temp Pulse Resp BP Pulse Ox 36.7 C 64 18 140/83 100 02/09/23 11:54 02/09/23 11:54 02/09/23 11:54 02/09/23 11:54 02/09/23 11:54 Lab Results Blood Type / Crossmatch: No Data to Display Complete Blood Count: No Data to Display Complete Metabolic Panel: No Data to Display Liver Function Panel: No Data to Display Coagulation Panel: No Data to Display Cardiac Panel: No Data to Display Arterial Blood Gas: No Data to Display Venous Blood Gas: No Data to Display Pancreas Panel: No Data to Display Thyroid Panel: No Data to Display Infectious Disease: No Data to Display Blood Cultures: No Data to Display Toxicology Panel: No Data to Display Panel: No Data to Display Imaging and Studies Imaging and Studies Study information below may be from another EMR and interpreted by another provider. Please see original notes in EMR for more complete details. Echocardiogram Summary: 04/20/2018: Summary: 1. Left ventricle: The cavity size was normal. Wall thickness was increased in a pattern of mild LVH. There was mild focal basal hypertrophy of the septum. Systolic function was normal. The estimated ejection fraction was 55-60%. Wall motion was normal; there were no regional wall motion abnormalities. 2. Aortic valve: There was mild regurgitation. 3. Mitral valve: There was mild regurgitation. 4. Right ventricle: The cavity size was normal. Wall thickness was normal. Systolic function was normal. Anesthesia Assessment and Plan Anesthesia History Personal History: No History of Anesthesia Complications Family History: No Family History of Anesthesia Complications Exercise Tolerance Exercise Tolerance: Metabolic Equivalents>4 Cardiac & Pulmonary Exam Cardiac Exam: Normal S1/S2 Heart Sounds Pulmonary Exam: Clear Bilateral Breath Sounds Implantable Cardiac Device Does patient have a Pacemaker or an ICD?: No Airway Exam Known Difficult Airway: No Mallampati Class: 2 Mouth Opening: Normal (> 3cm) Thyromental Distance: Greater than 3 cm Neck Range of Motion: Full ROM Neck Circumference: Normal Teeth Condition: Removable Dentures/Plates Upper ASA Classification ASA Score: ASA 2 Emergency Case?: No NPO Status NPO Status: NPO Clears >2 hours, Solids >8 hours Status Status: Not Per Patient Anesthesia Plan Resuscitation Status: Full Code Anesthesia Technique: General Anesthesia Airway Planned: Endotracheal Tube Monitors Used: Standard Monitors Preoperative Comments:: Prone
[2023-02-09] MEDS: ceFAZolin 2 GM/50 ML BAG IVPB (14:38)
[2023-02-09] MEDS: Bupivacaine 0.25% Pres-Free 30 ML VIAL (15:14)
--- NOTE | 2023-02-09 16:19 | PDOC.DSDIS_ITS ---
Date of service: 02/09/23 Time of Service: 16:18 Discharge Plan Disposition Patient Disposition: Home Condition: Good Discharge Details Reason For Visit: L achilles debridement Attending Provider: John Shell Primary Care Provider: John Sandhu Home Meds and New Rx's Prescriptions: New acetaminophen 500 mg tablet 1,000 mg PO TID Qty: 90 3RF hydrocodone-acetaminophen 5-325 mg tablet 1 tab PO Q6H PRN (Reason: pain) Qty: 15 0RF ibuprofen 600 mg tablet 600 mg PO TID PRNQty: 90 3RF Continued cetirizine 10 mg tablet 10 mg PO DAILY PRN (Reason: allergy symptoms) Qty: 90 3RF estradiol [Estrace] 0.01 % (0.1 mg/gram) cream 1 g vaginal .COMPLEX Qty: 42.5 2RF Rx Instructions: 1 g vaginally apply tiny amount to urethra daily x2 w then twice weekly multivitamin Tablet 1 tab PO DAILY valacyclovir 1 gram tablet 1,000 mg PO BID Qty: 30 3RF lmubozwkcr-qxwinoaqvyayb-rxis [Fioricet] 50-300-40 mg capsule 1 cap PO Q8H PRN (Reason: pain) Qty: 30 3RF Rx Instructions: Take 1-2 caps every 6 hours as needed for migraine do not exceed 6 tabs in 24 hours sumatriptan succinate [Imitrex STATdose Pen] 6 mg/0.5 mL pen injector 6 mg subcut ONCE PRN (Reason: migraine headache) Qty: 1 6RF albuterol sulfate 90 mcg/actuation HFA aerosol inhaler 2 puff inhalation Q6H PRN (Reason: shortness of breath or wheezing) Qty: 8.5 0RF losartan 50 mg tablet 50 mg PO DAILY Qty: 90 3RF amlodipine 5 mg tablet 5 mg PO BID Qty: 180 3RF propranolol 80 mg tablet 80 mg PO HS Qty: 180 3RF paroxetine HCl 20 mg tablet 20 mg PO DAILY Qty: 90 3RF Discontinued naproxen 250 mg tablet 250 mg PO BID PRN Hold Instructions: Changed by Provider ibuprofen 800 mg tablet 800 mg PO Q8H PRN (Reason: pain/headaches) Qty: 90 2RF Hold Instructions: Home Medication placed on hold at Doctor's office Discharge Instructions Additional Instructions: Achilles Debridement discharge Instructions Activity: You are NON WEIGHT BEARING. You should keep the leg elevated as much as possible. You may wiggle your toes and move your hip and knee. You may place your foot on the ground for balance but should avoid placing weight on it. Dressings: You should keep your splint clean and dry. Do NOT get wet or dirty. If you have issues with your splint, please call the office at [phone] or the hospital after hours. Medications: - You should take Tylenol and Ibuprofen around the clock for baseline pain. - You have been prescribed a stronger narcotic for breakthrough pain. - You should take a Baby Aspirin (81mg) twice a day for blood clot prevention. 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
--- NOTE | 2023-02-09 16:37 | W.ANESPOSTOP ---
Postoperative Evaluation Date, Time and Location Date Performed: 02/09/23 Time Performed: 16:37 Patient Location: PACU Vital Signs Most Recent Imported Vital Signs: Most Recent Vital Signs Temp Pulse Resp BP Pulse Ox 36.6 C 66 17 165/86 H 97 02/09/23 16:25 02/09/23 16:25 02/09/23 16:25 02/09/23 16:25 02/09/23 16:25 Pain Score Most Recent Pain Score: Most Recent Pain Score Pain Level 2 02/09/23 16:25 Assessment Mental Status: Awake (Alert & Oriented to Patient Baseline) Airway and Respiratory Function: Patent airway with normal (patient baseline) respiratory exam Cardiovascular Function: Hemodynamically Stable Hydration Status: Adequately Hydrated Nausea & Vomiting: No Nausea or Vomiting Pain: Pt. Denies Any Pain Peripheral Nerve Block: Patient did not receive a nerve block
[2023-02-09] MEDS: HYDROmorphone 2 MG/ML SYR IVP (16:41)
[2023-02-09] MEDS: Normal Saline 10 ML VIAL IJ (16:41)
[2023-02-09] MEDS: HYDROcodone 5/Acetaminophen 325 TAB PO (17:34)
--- NOTE | 2023-02-09 22:38 | W.PM.OP ---
Date of service: 02/09/23 Time of Service: 16:00 Operative Note Operative Note DATE OF PROCEDURE: 02/09/23 PRE-OP DIAGNOSIS: Insertional Calcific Tendinitis of Achilles Tendon with Stephanie deformity POST-OP DIAGNOSIS: same PROCEDURE: Debridement of Achilles tendon with removal of calcifications, removal of bone spurs, and resection of Stephanie deformity, left SURGEON: John Shell FOREST TECHNICIAN: Lowell Huerta ANESTHESIA TYPE: General LMA/ETT Refer to Anesthesia Record ESTIMATED BLOOD LOSS: 20 PATHOLOGY: none sent TOURNIQUET TIME: 0 COMPLICATIONS: None Patient was transported to: PACU Indications: Christelle is a 52 year old female who has had persistent pain about the heel. Clinical evaluation and x-rays demonstrated clear calcific tendinitis of the Achilles insertion. She has failed a host of conservative options but continues to have pain and difficulty with shoe wear. Therefore, I offered operative intervention in the form of Achilles debridement, bony prominence resection, and Achilles tendon repair as indicated. I reviewed the risk of the procedure to include bleeding, infection, pain, stiffness, damage to nerves and vessels, weakness, Achilles rerupture or retear, wound healing complications. Despite these risk,Christelle elected to proceed. Findings: There were notable calcific prominence of the calcaneal tuberosity which were resected and the calcaneus smooth. The Stephanie deformity from the posterior calcaneus was also resected. The Achilles repaired back down to the calcaneus. Procedure Description: Azar was greeted in the preoperative holding area. Identity was confirmed the correct side was identified and marked. Consent was reviewed the patient and signed. History of physical was updated. She was taken to the operating room. A general anesthetic was administered and then the patient was placed into the prone position. Chest rolls were placed to well-padded the chest and allow for chest expansion. The arms were placed in the 9090 position with all bony prominences well-padded. There was gel pad placed underneath the knees and a prone ramp was placed underneath the operative leg. No tourniquet was used. Prophylactic antibiotics in the form of cefazolin were given. A timeout was performed for safe surgery. The proposed surgical site was then injected with 0.25% bupivacaine. A midline incision was then made overlying the Achilles tendon and its insertion on the calcaneus. This incision was taken down all the way to the peritenon of the Achilles tendon and its insertion on the calcaneus. Full-thickness flaps were then elevated medially and laterally to better expose Achilles tendon and its insertion. A midline incision was then made within the Achilles tendon. The tendon was elevated off of the calcaneus medially and laterally leaving some bands at the far reaches for later tensioning of the Achilles tendon. Calcific deposits from in the tendon were then removed sharply. Prominences over the calcaneal tuberosity were also removed with a rongeur. I took a chisel to then resect the Stephanie deformity. This was checked by dorsiflexing the foot and inspecting for any impingement of the calcaneal prominence onto the Achilles tendon I also used a chisel to chamfer the medial lateral prominences of the calcaneal tuberosity as well. Once this was completed I then inspected the calcaneal insertion for any remnant sharp prominences or calcifications. A rasp was also used to smooth this down fully until there is no prominence projecting either posteriorly, medially, laterally. I made sure that the left attachments of the Achilles tendon to help guide the repair. I then performed a double row repair for extra security of the Achilles tendon. 2 Mitek Healix 4.5 mm anchors were placed in the medial anterior aspect of the footprint. One of the sutures was taken up into each half of the Achilles tendon in a locking fashion with the other them being brought through the tendon at the anterior margin of the footprint. This was repeated on the other side. The remaining suture was then utilized for closure of the split in the middle of the tendon. The suture placed into the tendon itself was then tied reducing the tendon down to the bone and creating the anterior row. The sutures were not cut. The 2 suture lines which were ran up the split of the Achilles tendon were then tied and this was cut. I then used a Mitek 4.75 mm Healix knotless anchor to secure the distal row. 1 each was placed medially and laterally. I included 3 suture limbs in each. This helped to reapproximate the Achilles tendon down to the surface area of the calcaneus. There was a small substance of medial Achilles tendon remaining and the dogear suture from the knotless anchor was utilized to secure this with a single horizontal mattress type stitch. This reapproximated the tendon over the entire footprint of the calcaneus. The suture limbs were then cut. The wounds and thoroughly irrigated. The deep tissues were anesthetized with 0.2% bupivacaine. The deep tissue was closed with 3-0 Vicryl followed by a 4-0 nylon. Xeroform, 4 x 4, ABD, web roll was applied to the foot in a short leg splint was placed. The patient was then placed into the supine position. There is no notable complications from the prone positioning of the surgery. Christelle was in transition back to the hospital stretcher in a stable condition. The procedure was tolerated well and the patient was transferred back to the PACU in stable condition.
== END 2023-02-09 18:09 | disposition home or self-care (01) ==
PROVIDERS: PCP Family Medicine; Visit Provider Student in an Organized Health Care Education/Training Program
PROC: (CPT 11043; principal; 2023-02-09 14:00)
DX: M92.62 Juvenile osteochondrosis of tarsus, left ankle (principal); M76.62 Achilles tendinitis, left leg; G47.33 Obstructive sleep apnea (adult) (pediatric); I10 Essential (primary) hypertension; F41.9 Anxiety disorder, unspecified
CPT/HCPCS: 27650; 28118; 27654; J0690; J1100; J1170; J2405; J2704

== ENCOUNTER 2023-11-09 13:56 | Outpatient (REF) | payer BC, SELFPAY | END 2023-11-09 13:57 | disposition home or self-care (01) | LOC: NCHCN 13:56 | PROVIDERS: PCP Family Medicine; Visit Provider Physician Assistant Medical | DX: R30.0 Dysuria (principal) | CPT/HCPCS: 87480; 87510; 87660 ==